=== PATIENT | female | born 1955 | race Caucasian/White ===

== ENCOUNTER → 2017-04-14 | Outpatient (CLI) | payer OTHER ==
[2017-04-19 12:44] LABS: Large VLDL Particle Number,NMR <1.5 nmol/L (<=2.7)
== END | disposition home or self-care (01) ==
LOC: LABWHC1 07:20
PROVIDERS: ATTEND Internal Medicine Cardiovascular Disease
DX: E78.5 Hyperlipidemia, unspecified (principal)
CPT/HCPCS: 36415; 83704

== ENCOUNTER 2018-04-07 11:08 | Emergency (ER) | payer OTHER ==
[2018-04-07 11:16] VITALS: TEMP 98.1
--- NOTE | 2018-04-07 11:32 | ED ---
General Adult HPI - General Chief complaint: Back Pain/Injury Stated complaint: BACK PAIN, SHOOTING TO LEFT CHEST Time Seen by Provider: 04/07/18 11:19 Source: patient Mode of arrival: ambulatory Limitations: no limitations - History of Present Illness Initial comments: Patient is a 63-year-old female with a history of hypertension, high cholesterol , chronic back pain who presents with a chief complaint of back pain and chest pain. Patient states that this is been going on for about 4 days. She describes the chest pain as sharp and like an electric shock. She denies any aggravating or alleviating factors. She states that she was playing with her cat yesterday and things that this may have educated her symptoms. She states that she had a recent stress test about 3 months ago. - Related Data Home Medications Medication Instructions Recorded Confirmed Albuterol Inhaler [Ventolin Hfa 2 puff INHALATION BID 02/02/14 02/17/15 Inhaler] Aspirin 81 mg PO DAILY 02/02/14 02/17/15 Diltiazem HCl [Diltiazem ER (BID)] 180 mg PO DAILY 02/02/14 02/17/15 Lovastatin [Mevacor] 20 mg PO HS 02/02/14 02/17/15 Nitroglycerin Sl Tabs [Nitrostat] 0.4 mg SUBLINGUAL Q5M PRN 02/02/14 02/17/15 Ranitidine HCl 150 mg PO BID 02/02/14 02/17/15 traMADol HCl [Ultram] 50 mg PO Q4H PRN 02/02/14 02/17/15 Previous Rx's Medication Instructions Recorded Albuterol Inhaler [Ventolin Hfa 1 - 2 puff INHALATION Q4-6H PRN #1 09/01/14 Inhaler] inhaler predniSONE 50 mg PO DAILY #5 tab 02/17/15 Cyclobenzaprine [Flexeril] 10 mg PO TID #21 tab 04/07/18 Allergies Allergy/AdvReac Type Severity Reaction Status Date / Time adhesive Allergy Unknown Verified 04/07/18 11:14 aspirin Allergy Rapid Verified 04/07/18 11:14 Heart Rate hydrocortisone Allergy Unknown Verified 04/07/18 11:14 [From Cortizone-10] ibuprofen [From Motrin] Allergy Unknown Verified 04/07/18 11:14 Sulfa (Sulfonamide Allergy Unknown Verified 04/07/18 11:14 Antibiotics) Review of Systems ROS Statement: Those systems with pertinent positive or pertinent negative responses have been documented in the HPI. ROS Other: All systems not noted in ROS Statement are negative. Cardiovascular: Reports: chest pain Musculoskeletal: Reports: back pain, arthralgia Past Medical History Past Medical History: Asthma, COPD, Hyperlipidemia, Hypertension Additional Past Medical History / Comment(s): heart murmur, History of Any Multi-Drug Resistant Organisms: None Reported Past Surgical History: Cholecystectomy, Hysterectomy Additional Past Surgical History / Comment(s): throat polyps, right breast biopsy Past Psychological History: Depression Smoking Status: Current every day smoker Past Alcohol Use History: None Reported Past Drug Use History: None Reported General Exam Limitations: no limitations General appearance: alert, in no apparent distress Head exam: Present: atraumatic, normocephalic Eye exam: Present: normal appearance ENT exam: Present: normal exam Neck exam: Present: normal inspection Respiratory exam: Present: normal lung sounds bilaterally. Absent: respiratory distress, wheezes Cardiovascular Exam: Present: regular rate, normal rhythm GI/Abdominal exam: Present: soft, tenderness (patient has diffuse mild tenderness to palpation ). Absent: distended Rectal exam: Present: deferred Extremities exam: Present: normal inspection, other (Pulses are 2+ bilaterally in the upper and lower extremities). Absent: pedal edema Back exam: Present: normal inspection. Absent: CVA tenderness (R), CVA tenderness (L) Neurological exam: Present: alert, oriented X3, CN II-XII intact, normal gait Psychiatric exam: Present: normal affect, normal mood Skin exam: Present: warm, dry, intact Course Vital Signs 04/07/18 04/07/18 04/07/18 11:14 12:16 14:16 Temperature 98.1 F Pulse Rate 69 66 71 Respiratory 18 20 20 Rate Blood Pressure 120/74 110/60 112/61 O2 Sat by Pulse 99 98 99 Oximetry 04/07/18 15:16 Temperature Pulse Rate 65 Respiratory 20 Rate Blood Pressure 114/64 O2 Sat by Pulse 98 Oximetry Medical Decision Making - Medical Decision Making Patient presents with a chief complaint of back pain and chest pain. On initial evaluation, vital signs are stable, patient is no acute distress. She denies anginal equivalents and has an atypical story however given her history of hypertension and high cholesterol, there is concern for aortic pathology. Patient to be evaluated with basic labs including cardiac evaluation and CT angiogram of the chest abdomen and pelvis to evaluate the aorta. EKG performed at 12:08 shows NSR with a rate of 66 bpm. EKG otherwise unremarakble. 4:26PM Lab evaluation of this patient is unremarkable including 2 sets of troponins at [address] scan shows no aortic pathology. results discussed with the patient, at this time she is stable for discharge and follow up with PCP in 1-2 days, return to the ED if sx worsen or change. patient instructed to use tylenol for pain and she will be give a prescription for flexeril. she was instructed on the use and dosages of all prescribed meds. - Lab Data Result diagrams: 04/07/18 12:00 04/07/18 12:00 Lab Results 04/07/18 04/07/18 04/07/18 Range/Units 12:00 12:00 12:00 WBC 6.3 (3.8-10.6) k/uL RBC 4.49 (3.80-5.40) m/uL Hgb 14.7 (11.4-16.0) gm/dL Hct 44.5 (34.0-46.0) % MCV 99.0 (80.0-100.0) fL MCH 32.7 (25.0-35.0) pg MCHC 33.0 (31.0-37.0) g/dL RDW 13.3 (11.5-15.5) % Plt Count 258 (150-450) k/uL Neutrophils % 57 % Lymphocytes % 33 % Monocytes % 7 % Eosinophils % 1 % Basophils % 0 % Neutrophils # 3.6 (1.3-7.7) k/uL Lymphocytes # 2.1 (1.0-4.8) k/uL Monocytes # 0.5 (0-1.0) k/uL Eosinophils # 0.1 (0-0.7) k/uL Basophils # 0.0 (0-0.2) k/uL Sodium 142 (137-145) mmol/L Potassium 4.7 (3.5-5.1) mmol/L Chloride 107 (98-107) mmol/L Carbon Dioxide 27 (22-30) mmol/L Anion Gap 8 mmol/L BUN 19 H (7-17) mg/dL Creatinine 0.83 (0.52-1.04) mg/dL Est GFR (CKD-EPI)AfAm 88 (>60 ml/min/1.73 sqM) Est GFR (CKD-EPI)NonAf 76 (>60 ml/min/1.73 sqM) Glucose 82 (74-99) mg/dL Calcium 9.6 (8.4-10.2) mg/dL Magnesium 2.2 (1.6-2.3) mg/dL Troponin I (0.000-0.034) ng/mL NT-Pro-B Natriuret Pep pg/mL Urine Color Urine Appearance (Clear) Urine pH (5.0-8.0) Ur Specific [place] (1.001-1.035) Urine Protein (Negative) Urine Glucose (UA) (Negative) Urine Ketones (Negative) Urine Blood (Negative) Urine Nitrite (Negative) Urine Bilirubin (Negative) Urine Urobilinogen (<2.0) mg/dL Ur Leukocyte Esterase (Negative) Blood Type O Positive Blood Type Confirm Blood Type Recheck CABO Indicated Antibody Screen NEGATIVE Spec Expiration Date 04/10/2018229904/07/18 04/07/18 04/07/18 Range/Units 12:00 12:00 12:48 WBC (3.8-10.6) k/uL RBC (3.80-5.40) m/uL Hgb (11.4-16.0) gm/dL Hct (34.0-46.0) % MCV (80.0-100.0) fL MCH (25.0-35.0) pg MCHC (31.0-37.0) g/dL RDW (11.5-15.5) % Plt Count (150-450) k/uL Neutrophils % % Lymphocytes % % Monocytes % % Eosinophils % % Basophils % % Neutrophils # (1.3-7.7) k/uL Lymphocytes # (1.0-4.8) k/uL Monocytes # (0-1.0) k/uL Eosinophils # (0-0.7) k/uL Basophils # (0-0.2) k/uL Sodium (137-145) mmol/L Potassium (3.5-5.1) mmol/L Chloride (98-107) mmol/L Carbon Dioxide (22-30) mmol/L Anion Gap mmol/L BUN (7-17) mg/dL Creatinine (0.52-1.04) mg/dL Est GFR (CKD-EPI)AfAm (>60 ml/min/1.73 sqM) Est GFR (CKD-EPI)NonAf (>60 ml/min/1.73 sqM) Glucose (74-99) mg/dL Calcium (8.4-10.2) mg/dL Magnesium (1.6-2.3) mg/dL Troponin I <0.012 (0.000-0.034) ng/mL NT-Pro-B Natriuret Pep 41 pg/mL Urine Color Light Yellow Urine Appearance Clear (Clear) Urine pH 6.5 (5.0-8.0) Ur Specific [place] 1.011 (1.001-1.035) Urine Protein Negative (Negative) Urine Glucose (UA) Negative (Negative) Urine Ketones Negative (Negative) Urine Blood Negative (Negative) Urine Nitrite Negative (Negative) Urine Bilirubin Negative (Negative) Urine Urobilinogen <2.0 (<2.0) mg/dL Ur Leukocyte Esterase Negative (Negative) Blood Type Blood Type Confirm Blood Type Recheck Antibody Screen Spec Expiration Date 04/07/18 04/07/18 Range/Units 13:34 15:28 WBC (3.8-10.6) k/uL RBC (3.80-5.40) m/uL Hgb (11.4-16.0) gm/dL Hct (34.0-46.0) % MCV (80.0-100.0) fL MCH (25.0-35.0) pg MCHC (31.0-37.0) g/dL RDW (11.5-15.5) % Plt Count (150-450) k/uL Neutrophils % % Lymphocytes % % Monocytes % % Eosinophils % % Basophils % % Neutrophils # (1.3-7.7) k/uL Lymphocytes # (1.0-4.8) k/uL Monocytes # (0-1.0) k/uL Eosinophils # (0-0.7) k/uL Basophils # (0-0.2) k/uL Sodium (137-145) mmol/L Potassium (3.5-5.1) mmol/L Chloride (98-107) mmol/L Carbon Dioxide (22-30) mmol/L Anion Gap mmol/L BUN (7-17) mg/dL Creatinine (0.52-1.04) mg/dL Est GFR (CKD-EPI)AfAm (>60 ml/min/1.73 sqM) Est GFR (CKD-EPI)NonAf (>60 ml/min/1.73 sqM) Glucose (74-99) mg/dL Calcium (8.4-10.2) mg/dL Magnesium (1.6-2.3) mg/dL Troponin I <0.012 (0.000-0.034) ng/mL NT-Pro-B Natriuret Pep pg/mL Urine Color Urine Appearance (Clear) Urine pH (5.0-8.0) Ur Specific [place] (1.001-1.035) Urine Protein (Negative) Urine Glucose (UA) (Negative) Urine Ketones (Negative) Urine Blood (Negative) Urine Nitrite (Negative) Urine Bilirubin (Negative) Urine Urobilinogen (<2.0) mg/dL Ur Leukocyte Esterase (Negative) Blood Type Blood Type Confirm O Positive Blood Type Recheck Antibody Screen Spec Expiration Date Disposition Clinical Impression: Mechanical back pain, Chest pain in adult, Chest pain Disposition: HOME SELF-CARE Condition: Good Is patient prescribed a controlled substance at d/c from ED?: No Referrals: Leila Kimble MD [Primary Care Provider] - 1-2 days
--- NOTE | 2018-04-07 12:52 | XR ---
EXAMINATION TYPE: XR chest 2V DATE OF EXAM: 04/07/2018 HISTORY: Pain. REFERENCE: Previous study dated 08/21/2015. FINDINGS: The lungs are clear. Pleural spaces are clear. The heart is not enlarged. IMPRESSION: NORMAL CHEST.
[2018-04-07 12:56] LABS: Basophils % (A) 0 %; Eosinophils # (A) 0.1 k/uL (0-0.7); Eosinophils % (A) 1 %; HCT 44.5 % (34.0-46.0); HGB 14.7 gm/dL (11.4-16.0); Lymphocytes # (A) 2.1 k/uL (1.0-4.8); Lymphocytes % (A) 33 %; MCH 32.7 pg (25.0-35.0); Mean Platelet Volume 7.3; Monocytes # (A) 0.5 k/uL (0-1.0); Monocytes % (A) 7 %; Neutrophils # (A) 3.6 k/uL (1.3-7.7); Neutrophils % (A) 57 %; Platelet Count 258 k/uL (150-450); RBC 4.49 m/uL (3.80-5.40); RDW 13.3 % (11.5-15.5); WBC 6.3 k/uL (3.8-10.6)
[2018-04-07 13:03] LABS: Calcium 9.6 mg/dL (8.4-10.2); Magnesium 2.2 mg/dL (1.6-2.3); Potassium 4.7 mmol/L (3.5-5.1)
--- NOTE | 2018-04-07 13:05 | CT ---
EXAMINATION TYPE: CT angio thor/abd pel aorta DATE OF EXAM: 04/07/2018 COMPARISON: None. HISTORY: Back pain radiating to chest. CT DLP: 716 mGycm. Automated Exposure Control for Dose Reduction was Utilized. CONTRAST: CT scan of the thorax, abdomen and pelvis is performed with IV Contrast, patient injected with 100 mL of Isovue 370. FINDINGS: The lungs are clear. There is no significant axillary, internal mammary, mediastinal or hil ar adenopathy. There is no pleural or pericardial fluid. The heart is not enlarged. There is no evidence of pulmonary embolus. The aorta is normal in caliber without evidence of dissection. The iliac and proximal femoral vessels are normal. The celiac, SMA and ADITI vessels are patent. Both renal arteries are patent. Within the abdomen, the gallbladder is been removed. Liver and spleen are unremarkable. Both adrenal glands are normal. Both kidneys demonstrate function and appear morphologically normal. The pancreas is unremarkable. There is no significant retroperitoneal, iliac or inguinal adenopathy. The bladder is unremarkable. T he uterus and ovaries are not visualized. There are scattered diverticula in the sigmoid colon and throughout the left side of the colon. There is no radiographic evidence of diverticulitis. The appendix is not visualized. Small bowel loops are within normal caliber. There is no free fluid and no free air identified. There is hypertrophic spondylosis within the spine as well as facet arthropathy. No bony destructive lesion is seen. IMPRESSION: 1. NORMAL CALIBER AORTA WITH NORMAL BRANCHING VESSELS. 2. NO EVIDENCE OF PULMONARY EMBOLUS. 3. NO ACUTE INFLAMMATORY ABNORMALITY. 4. MILD, UNCOMPLICATED DIVERTICULOSIS OF THE LEFT SIDE OF THE COLON. 5. DEGENERATIVE CHANGES WITHIN THE SPINE.
[2018-04-07 13:12] LABS: Appearance,Urine Clear (Clear); Bilirubin,Urine Negative (Negative); Blood,Urine Negative (Negative); Color,Urine Light Yellow; Glucose,Urine (UA) Negative (Negative); Ketones,Urine Negative (Negative); Leukocyte Esterase,Urine Negative (Negative); Nitrite,Urine Negative (Negative); PH, Urine 6.5 (5.0-8.0); Protein,Urine Negative (Negative); Specific Gravity,Urine 1.011 (1.001-1.035); Urobilinogen,Urine <2.0 mg/dL (<2.0)
[2018-04-07 16:39] VITALS: BP 134/72; PULSE 64; RESP 18
== END 2018-04-07 16:38 | disposition home or self-care (01) ==
LOC: EC 11:08
DX: R07.9 Chest pain, unspecified (principal); M54.9 Dorsalgia, unspecified; I10 Essential (primary) hypertension; E78.00 Pure hypercholesterolemia, unspecified; E78.5 Hyperlipidemia, unspecified; J44.9 Chronic obstructive pulmonary disease, unspecified; F17.200 Nicotine dependence, unspecified, uncomplicated; Z79.82 Long term (current) use of aspirin; Z79.899 Other long term (current) drug therapy; Z88.6 Allergy status to analgesic agent; Z91.048 Other nonmedicinal substance allergy status; Z88.2 Allergy status to sulfonamides; Z88.8 Allergy status to other drugs, medicaments and biological substances
CPT/HCPCS: 36415; 93005; 86900; 86901; 83880; 80048; 83735; 84484; 85025; 86850; 81003; 71046; 71275; 74174; 99285; Q9967

== ENCOUNTER 2018-12-20 10:27 | Emergency (ER) | payer OTHER ==
[2018-12-20 10:37] VITALS: RESP 18
[2018-12-20 11:42] LABS: Basophils % (A) 0 %; Eosinophils # (A) 0.1 k/uL (0-0.7); Eosinophils % (A) 2 %; HCT 41.2 % (34.0-46.0); HGB 13.8 gm/dL (11.4-16.0); Lymphocytes # (A) 2.1 k/uL (1.0-4.8); Lymphocytes % (A) 34 %; MCH 33.3 pg (25.0-35.0); MCHC 33.4 g/dL (31.0-37.0); MCV 99.9 fL (80.0-100.0); Mean Platelet Volume 7.5; Monocytes # (A) 0.4 k/uL (0-1.0); Monocytes % (A) 7 %; Neutrophils # (A) 3.3 k/uL (1.3-7.7); Neutrophils % (A) 55 %; Platelet Count 287 k/uL (150-450); RBC 4.13 m/uL (3.80-5.40); WBC 6.1 k/uL (3.8-10.6)
[2018-12-20 11:50] LABS: African American GFR (CKD) >90 (>60 ml/min/1.73 sqM); Anion Gap 8 mmol/L; Blood Urea Nitrogen 16 mg/dL (7-17); Calcium 9.1 mg/dL (8.4-10.2); Carbon Dioxide 23 mmol/L (22-30); Chloride 110 mmol/L (98-107); Glucose 113 mg/dL (74-99); Sodium 141 mmol/L (137-145); Total Bilirubin 0.6 mg/dL (0.2-1.3); Total Protein 6.6 g/dL (6.3-8.2)
[2018-12-20 11:51] LABS: INR 0.8 (<1.2); Partial Thromboplastin Time 26.8 sec (22.0-30.0); Prothrombin Time 9.4 sec (9.0-12.0)
[2018-12-20 11:53] LABS: ALT 16 U/L (9-52); AST 25 U/L (14-36); Alkaline Phosphatase 62 U/L (38-126); Magnesium 2.2 mg/dL (1.6-2.3); Potassium 4.6 mmol/L (3.5-5.1)
--- NOTE | 2018-12-20 12:28 | ED ---
General Adult HPI - General Chief complaint: Arrhythmia/Palpitations Stated complaint: Hypertensive, Heart fluttering Time Seen by Provider: 12/20/18 10:49 Source: patient Mode of arrival: ambulatory Limitations: no limitations - History of Present Illness Initial comments: Dictation was produced using [employer] dictation software. please excuse any grammatical, word or spelling errors. Chief Complaint: 63-year-old female with past medical history of asthma, COPD, dyslipidemia hypertension presents with palpitations. History of Present Illness: 61-year-old female presents with episode of palpitations today. Patient reports having history of palpitations. She states that during that episode she had symptoms that radiate down the left arm patient denies any chest pain or shortness of breath. States the symptoms lasted only episodically for several seconds. States that her palpitations are usually alleviated with aspirin and half a bottle of water. Patient states that recently she was placed on a Holter monitor for 2 weeks. She was told that her Holter monitor was negative for any acute processes. Patient otherwise feels a symptomatic at this time. She denies any nausea vomiting. Patient states she's been eating a well-balanced diet. The ROS documented in this emergency department record has been reviewed and confirmed by me. Those systems with pertinent positive or negative responses have been documented in the HPI. All other systems are other negative and/or noncontributory. PHYSICAL EXAM: General Impression: Alert and oriented x3, not in acute distress HEENT: Normocephalic atraumatic, extra-ocular movements intact, pupils equal and reactive to light bilaterally, mucous membranes moist. Cardiovascular: Heart regular rate and rhythm, S1&S2 audible, no murmurs, rubs or gallops Chest: Lungs clear to auscultation bilaterally, no rhonchi, no wheeze, no rales Abdomen: Bowel sounds present, abdomen soft, non-tender, non-distended, no organomegaly Musculoskeletal: Pulses present and equal in all extremities, no peripheral edema Motor: no focal deficits noted Neurological: CN II-XII grossly intact, no focal motor or sensory deficits noted Skin: Intact with no visualized rashes Psych: Normal affect and mood ED course: 63-year-old female presents with episode of palpitations. All signs upon arrival are within acceptable limits.Laboratory evaluation obtained. CBC, coag panel, metabolic panel, electrolytes are unremarkable. Patient was observed in emergency department on desk monitor with no abnormalities seen. Two-view chest x-ray is nonacute. EKG is unremarkable. It's unclear what is causing patient's palpitations or even if she is having palpitations. Medications were reviewed. Patient is told to avoid any stress, caffeine or stimulants. Still to follow-up with cardiology for repeat Holter monitor testing. Patient is understandable and agreeable to disposition. Return parameters discussed. EKG interpretation: Ventricular rate 75, normal sinus rhythm, [place] interval 172, QRS 84, QTc 4:30. No [place] prolongation, no QTC prolongation, no ST or T-wave changes noted. Overall, this EKG is unremarkable - Related Data Home Medications Medication Instructions Recorded Confirmed Aspirin 81 mg PO DAILY PRN 02/02/14 12/20/18 Lovastatin [Mevacor] 20 mg PO HS 02/02/14 12/20/18 Nitroglycerin Sl Tabs [Nitrostat] 0.4 mg SUBLINGUAL Q5M PRN 02/02/14 12/20/18 Ranitidine HCl 150 mg PO BID 02/02/14 12/20/18 Diltiazem HCl [Diltiazem ER] 180 mg PO DAILY 12/20/18 12/20/18 Allergies Allergy/AdvReac Type Severity Reaction Status Date / Time adhesive Allergy Unknown Verified 12/20/18 11:13 aspirin Allergy Rapid Verified 12/20/18 11:13 Heart Rate hydrocortisone Allergy Unknown Verified 12/20/18 11:13 [From Cortizone-10] ibuprofen [From Motrin] Allergy Unknown Verified 12/20/18 11:13 Sulfa (Sulfonamide Allergy Unknown Verified 12/20/18 11:13 Antibiotics) Review of Systems ROS Statement: Those systems with pertinent positive or pertinent negative responses have been documented in the HPI. ROS Other: All systems not noted in ROS Statement are negative. Past Medical History Past Medical History: Asthma, COPD, Hyperlipidemia, Hypertension Additional Past Medical History / Comment(s): heart murmur, History of Any Multi-Drug Resistant Organisms: None Reported Past Surgical History: Cholecystectomy, Hysterectomy Additional Past Surgical History / Comment(s): throat polyps, right breast biopsy Past Psychological History: Depression Smoking Status: Current every day smoker Past Alcohol Use History: None Reported Past Drug Use History: None Reported General Exam Limitations: no limitations Course Vital Signs 12/20/18 12/20/18 12/20/18 10:34 10:49 11:00 Temperature 98.4 F Pulse Rate 72 74 71 Respiratory 18 15 17 Rate Blood Pressure 112/63 117/76 O2 Sat by Pulse 100 99 100 Oximetry 12/20/18 12/20/18 12/20/18 11:30 12:00 12:30 Temperature Pulse Rate 73 68 63 Respiratory 21 18 15 Rate Blood Pressure 116/73 115/96 116/68 O2 Sat by Pulse 99 98 98 Oximetry 12/20/18 12/20/18 13:00 13:18 Temperature Pulse Rate 62 65 Respiratory 18 18 Rate Blood Pressure 127/74 112/56 O2 Sat by Pulse 98 99 Oximetry Medical Decision Making - Lab Data Result diagrams: 12/20/18 11:08 12/20/18 11:08 Lab Results 12/20/18 12/20/18 12/20/18 Range/Units 11:08 11:08 11:08 WBC 6.1 (3.8-10.6) k/uL RBC 4.13 (3.80-5.40) m/uL Hgb 13.8 (11.4-16.0) gm/dL Hct 41.2 (34.0-46.0) % MCV 99.9 (80.0-100.0) fL MCH 33.3 (25.0-35.0) pg MCHC 33.4 (31.0-37.0) g/dL RDW 13.0 (11.5-15.5) % Plt Count 287 (150-450) k/uL Neutrophils % 55 % Lymphocytes % 34 % Monocytes % 7 % Eosinophils % 2 % Basophils % 0 % Neutrophils # 3.3 (1.3-7.7) k/uL Lymphocytes # 2.1 (1.0-4.8) k/uL Monocytes # 0.4 (0-1.0) k/uL Eosinophils # 0.1 (0-0.7) k/uL Basophils # 0.0 (0-0.2) k/uL PT (9.0-12.0) sec INR (<1.2) APTT (22.0-30.0) sec Sodium 141 (137-145) mmol/L Potassium 4.6 (3.5-5.1) mmol/L Chloride 110 H (98-107) mmol/L Carbon Dioxide 23 (22-30) mmol/L Anion Gap 8 mmol/L BUN 16 (7-17) mg/dL Creatinine 0.76 (0.52-1.04) mg/dL Est GFR (CKD-EPI)AfAm >90 (>60 ml/min/1.73 sqM) Est GFR (CKD-EPI)NonAf 85 (>60 ml/min/1.73 sqM) Glucose 113 H (74-99) mg/dL Calcium 9.1 (8.4-10.2) mg/dL Magnesium 2.2 (1.6-2.3) mg/dL Total Bilirubin 0.6 (0.2-1.3) mg/dL AST 25 (14-36) U/L ALT 16 (9-52) U/L Alkaline Phosphatase 62 (38-126) U/L Troponin I <0.012 (0.000-0.034) ng/mL Total Protein 6.6 (6.3-8.2) g/dL Albumin 4.0 (3.5-5.0) g/dL 12/20/18 Range/Units 11:08 WBC (3.8-10.6) k/uL RBC (3.80-5.40) m/uL Hgb (11.4-16.0) gm/dL Hct (34.0-46.0) % MCV (80.0-100.0) fL MCH (25.0-35.0) pg MCHC (31.0-37.0) g/dL RDW (11.5-15.5) % Plt Count (150-450) k/uL Neutrophils % % Lymphocytes % % Monocytes % % Eosinophils % % Basophils % % Neutrophils # (1.3-7.7) k/uL Lymphocytes # (1.0-4.8) k/uL Monocytes # (0-1.0) k/uL Eosinophils # (0-0.7) k/uL Basophils # (0-0.2) k/uL PT 9.4 (9.0-12.0) sec INR 0.8 (<1.2) APTT 26.8 (22.0-30.0) sec Sodium (137-145) mmol/L Potassium (3.5-5.1) mmol/L Chloride (98-107) mmol/L Carbon Dioxide (22-30) mmol/L Anion Gap mmol/L BUN (7-17) mg/dL Creatinine (0.52-1.04) mg/dL Est GFR (CKD-EPI)AfAm (>60 ml/min/1.73 sqM) Est GFR (CKD-EPI)NonAf (>60 ml/min/1.73 sqM) Glucose (74-99) mg/dL Calcium (8.4-10.2) mg/dL Magnesium (1.6-2.3) mg/dL Total Bilirubin (0.2-1.3) mg/dL AST (14-36) U/L ALT (9-52) U/L Alkaline Phosphatase (38-126) U/L Troponin I (0.000-0.034) ng/mL Total Protein (6.3-8.2) g/dL Albumin (3.5-5.0) g/dL Disposition Clinical Impression: Palpitations Disposition: HOME SELF-CARE Condition: Good Instructions (If sedation given, give patient instructions): Heart Palpitations (ED) Is patient prescribed a controlled substance at d/c from ED?: No Referrals: Reji Eckert MD [STAFF PHYSICIAN] - 1-2 days Time of Disposition: 14:11
--- NOTE | 2018-12-20 12:45 | XR ---
EXAMINATION TYPE: XR chest 2V DATE OF EXAM: 12/20/2018 COMPARISON: Chest x-ray April 07, 2018 HISTORY: Arrhythmia and chest pain. TECHNIQUE: Frontal and lateral views of the chest are obtained. FINDINGS: There is some chronic parenchymal change bilaterally without suspicious new focal air spac e opacity, pleural effusion, or pneumothorax seen. The cardiac silhouette size remains within normal limits. Overlying EKG leads are present. The osseous structures are intact. Cholecystectomy clips are redemonstrated on lateral view. IMPRESSION: No acute cardiopulmonary process. No significant change from prior.
[2018-12-20 14:26] VITALS: BP 120/73; PULSE 64; TEMP 98
== END 2018-12-20 14:25 | disposition home or self-care (01) ==
LOC: EC 10:27
DX: R00.2 Palpitations (principal); E78.5 Hyperlipidemia, unspecified; I10 Essential (primary) hypertension; F17.200 Nicotine dependence, unspecified, uncomplicated; Z88.2 Allergy status to sulfonamides; Z88.6 Allergy status to analgesic agent; Z88.8 Allergy status to other drugs, medicaments and biological substances; Z91.048 Other nonmedicinal substance allergy status; Z79.899 Other long term (current) drug therapy
CPT/HCPCS: 36415; 71046; 80053; 83735; 84484; 85025; 85610; 85730; 93005; 99285

== ENCOUNTER → 2019-05-07 | Outpatient (CLI) | payer OTHER ==
[2019-05-07 13:36] LABS: Basophils # (A) 0.1 k/uL (0-0.2); Basophils % (A) 2 %; Eosinophils # (A) 0.1 k/uL (0-0.7); Eosinophils % (A) 1 %; HCT 42.9 % (34.0-46.0); HGB 14.9 gm/dL (11.4-16.0); Lymphocytes # (A) 1.8 k/uL (1.0-4.8); Lymphocytes % (A) 26 %; MCH 34.5 pg (25.0-35.0); MCHC 34.6 g/dL (31.0-37.0); MCV 99.6 fL (80.0-100.0); Mean Platelet Volume 6.4; Monocytes # (A) 0.6 k/uL (0-1.0); Monocytes % (A) 8 %; Neutrophils # (A) 4.1 k/uL (1.3-7.7); Neutrophils % (A) 61 %; Platelet Count 296 k/uL (150-450); RBC 4.31 m/uL (3.80-5.40); RDW 13.2 % (11.5-15.5); WBC 6.7 k/uL (3.8-10.6)
== END | disposition home or self-care (01) ==
LOC: LABWHC1 10:55
PROVIDERS: ATTEND Family Medicine
DX: R79.9 Abnormal finding of blood chemistry, unspecified (principal)
CPT/HCPCS: 36415; 85025

== ENCOUNTER 2019-10-26 13:19 | Emergency (ER) | payer OTHER ==
[2019-10-26 13:27] VITALS: TEMP 98.1
[2019-10-26] MEDS ORDERED: SODIUM CHLORIDE 0.9% 500 ML 500 ML IV STA (13:44)
[2019-10-26 14:03] LABS: Basophils % (A) 1 %; Eosinophils # (A) 0.1 k/uL (0-0.7); Eosinophils % (A) 1 %; HGB 14.9 gm/dL (11.4-16.0); Lymphocytes # (A) 2.2 k/uL (1.0-4.8); Lymphocytes % (A) 31 %; MCH 32.6 pg (25.0-35.0); MCHC 33.1 g/dL (31.0-37.0); MCV 98.5 fL (80.0-100.0); Mean Platelet Volume 7.2; Monocytes # (A) 0.5 k/uL (0-1.0); Monocytes % (A) 7 %; Neutrophils # (A) 4.1 k/uL (1.3-7.7); Neutrophils % (A) 58 %; Platelet Count 289 k/uL (150-450); RBC 4.57 m/uL (3.80-5.40); RDW 13.3 % (11.5-15.5); WBC 7.1 k/uL (3.8-10.6)
--- NOTE | 2019-10-26 14:07 | ED ---
Arrhythmia/Palpitations HPI - General Chief Complaint: Arrhythmia/Palpitations Stated Complaint: Palpitations Time Seen by Provider: 10/26/19 13:29 Source: patient Mode of arrival: ambulatory Limitations: no limitations - History of Present Illness Initial Comments: Patient is a 64-year-old female, with history of asthma, hypertension, presenting to the emergency Department with complaints of palpitations 3 days. Patient states she had a echo last week and ever since she had this test she's been having increase in her palpitations. Patient denies having any chest pains. She sees Dr. Cam is her hammerer tab. She is scheduled for a stress test in 3 days. Patient denies any recent fever, chills, abdominal pain, nausea, vomiting, shortness of breath, cough. She has no other complaints at this time. Upon arrival to the ER, her vitals are stable. - Related Data Home Medications Medication Instructions Recorded Confirmed Aspirin 81 mg PO DAILY PRN 02/02/14 10/26/19 Lovastatin [Mevacor] 20 mg PO HS 02/02/14 10/26/19 Nitroglycerin Sl Tabs [Nitrostat] 0.4 mg SUBLINGUAL Q5M PRN 02/02/14 10/26/19 Ranitidine HCl 150 mg PO BID 02/02/14 10/26/19 Diltiazem HCl [Diltiazem ER] 180 mg PO DAILY 12/20/18 10/26/19 Artificial Tears-Hypromellose 1 drops BOTH EYES BID 10/26/19 10/26/19 [Artificial Tear Drops] Cyclobenzaprine [Flexeril] 2.5 mg PO BID PRN 10/26/19 10/26/19 Allergies Allergy/AdvReac Type Severity Reaction Status Date / Time adhesive Allergy Unknown Verified 10/26/19 14:14 aspirin Allergy Rapid Verified 10/26/19 14:14 Heart Rate hydrocortisone Allergy Unknown Verified 10/26/19 14:14 [From Cortizone-10] ibuprofen [From Motrin] Allergy Unknown Verified 10/26/19 14:14 Sulfa (Sulfonamide Allergy Unknown Verified 10/26/19 14:14 Antibiotics) Review of Systems ROS Statement: Those systems with pertinent positive or pertinent negative responses have been documented in the HPI. ROS Other: All systems not noted in ROS Statement are negative. Past Medical History Past Medical History: Asthma, COPD, Hyperlipidemia, Hypertension Additional Past Medical History / Comment(s): heart murmur, History of Any Multi-Drug Resistant Organisms: None Reported Past Surgical History: Cholecystectomy, Hysterectomy Additional Past Surgical History / Comment(s): throat polyps, right breast biopsy Past Psychological History: Depression Smoking Status: Current every day smoker Past Alcohol Use History: None Reported Past Drug Use History: None Reported General Exam - General Exam Comments Initial Comments: GENERAL: Well-appearing, well-nourished and in no acute distress. HEAD: Atraumatic, normocephalic. EYES: Pupils equal round and reactive to light, extraocular movements intact, sclera anicteric, conjunctiva are normal. ENT: TMs normal, nares patent, oropharynx clear without exudates. Moist mucous membranes. NECK: Normal range of motion, supple without lymphadenopathy or JVD. LUNGS: Breath sounds clear to auscultation bilaterally and equal. No wheezes rales or rhonchi. HEART: Regular rate and rhythm without murmurs, rubs or gallops. ABDOMEN: Soft, nontender, normoactive bowel sounds. No guarding, no rebound. No masses appreciated. : Deferred EXTREMITIES: Normal range of motion, no pitting or edema. No clubbing or cyanosis. NEUROLOGICAL: Normal speech, normal gait. PSYCH: Normal mood, normal affect. SKIN: Warm, Dry, normal turgor, no rashes or lesions noted. Limitations: no limitations Course Vital Signs 10/26/19 10/26/19 10/26/19 13:23 14:36 14:37 Temperature 98.1 F Pulse Rate 73 67 68 Respiratory 18 16 18 Rate Blood Pressure 137/83 122/83 122/83 O2 Sat by Pulse 98 98 99 Oximetry 10/26/19 15:00 Temperature Pulse Rate 70 Respiratory 18 Rate Blood Pressure 120/77 O2 Sat by Pulse 99 Oximetry EKG Findings - EKG Comments: EKG Findings:: Ventricular rate 74, P or notable 164, QTC 419. Normal sinus rhythm. Normal ECG. No signs of acute ischemia. Medical Decision Making - Medical Decision Making Patient 64-year-old female here for her palpitations 3 days. She had a echo last week, unable to see results. Her hammerer tab Dr. Eckert. She is scheduled for a stress test in 3 days. Her vitals are stable. EKG is normal sinus rhythm, no signs of acute ischemia. Her exam is unremarkable. Lab work shows no acute abnormalities, troponin is normal. Patient was given fluids. She will follow up with Dr. Eckert for her scheduled stress test. She is stable for discharge at this time. She is agreeable with this plan of care. Return parameters were discussed with the patient she verbalized understanding. Case discussed with Dr. Wadsworth. - Lab Data Result diagrams: 10/26/19 13:53 10/26/19 13:53 Lab Results 10/26/19 10/26/19 10/26/19 Range/Units 13:53 13:53 13:53 WBC 7.1 (3.8-10.6) k/uL RBC 4.57 (3.80-5.40) m/uL Hgb 14.9 (11.4-16.0) gm/dL Hct 45.0 (34.0-46.0) % MCV 98.5 (80.0-100.0) fL MCH 32.6 (25.0-35.0) pg MCHC 33.1 (31.0-37.0) g/dL RDW 13.3 (11.5-15.5) % Plt Count 289 (150-450) k/uL Neutrophils % 58 % Lymphocytes % 31 % Monocytes % 7 % Eosinophils % 1 % Basophils % 1 % Neutrophils # 4.1 (1.3-7.7) k/uL Lymphocytes # 2.2 (1.0-4.8) k/uL Monocytes # 0.5 (0-1.0) k/uL Eosinophils # 0.1 (0-0.7) k/uL Basophils # 0.0 (0-0.2) k/uL PT 9.4 (9.0-12.0) sec INR 0.9 (<1.2) APTT 25.4 (22.0-30.0) sec Sodium 138 (137-145) mmol/L Potassium 4.4 (3.5-5.1) mmol/L Chloride 108 H (98-107) mmol/L Carbon Dioxide 24 (22-30) mmol/L Anion Gap 6 mmol/L BUN 20 H (7-17) mg/dL Creatinine 0.70 (0.52-1.04) mg/dL Est GFR (CKD-EPI)AfAm >90 (>60 ml/min/1.73 sqM) Est GFR (CKD-EPI)NonAf >90 (>60 ml/min/1.73 sqM) Glucose 91 (74-99) mg/dL Calcium 9.2 (8.4-10.2) mg/dL Total Bilirubin 0.3 (0.2-1.3) mg/dL AST 26 (14-36) U/L ALT 21 (4-34) U/L Alkaline Phosphatase 87 (38-126) U/L Troponin I (0.000-0.034) ng/mL Total Protein 7.2 (6.3-8.2) g/dL Albumin 4.1 (3.5-5.0) g/dL 10/26/19 Range/Units 13:53 WBC (3.8-10.6) k/uL RBC (3.80-5.40) m/uL Hgb (11.4-16.0) gm/dL Hct (34.0-46.0) % MCV (80.0-100.0) fL MCH (25.0-35.0) pg MCHC (31.0-37.0) g/dL RDW (11.5-15.5) % Plt Count (150-450) k/uL Neutrophils % % Lymphocytes % % Monocytes % % Eosinophils % % Basophils % % Neutrophils # (1.3-7.7) k/uL Lymphocytes # (1.0-4.8) k/uL Monocytes # (0-1.0) k/uL Eosinophils # (0-0.7) k/uL Basophils # (0-0.2) k/uL PT (9.0-12.0) sec INR (<1.2) APTT (22.0-30.0) sec Sodium (137-145) mmol/L Potassium (3.5-5.1) mmol/L Chloride (98-107) mmol/L Carbon Dioxide (22-30) mmol/L Anion Gap mmol/L BUN (7-17) mg/dL Creatinine (0.52-1.04) mg/dL Est GFR (CKD-EPI)AfAm (>60 ml/min/1.73 sqM) Est GFR (CKD-EPI)NonAf (>60 ml/min/1.73 sqM) Glucose (74-99) mg/dL Calcium (8.4-10.2) mg/dL Total Bilirubin (0.2-1.3) mg/dL AST (14-36) U/L ALT (4-34) U/L Alkaline Phosphatase (38-126) U/L Troponin I <0.012 (0.000-0.034) ng/mL Total Protein (6.3-8.2) g/dL Albumin (3.5-5.0) g/dL Disposition Clinical Impression: Palpitations Disposition: HOME SELF-CARE Condition: Stable Instructions (If sedation given, give patient instructions): Heart Palpitations (ED) Additional Instructions: Please return to the Emergency Department if symptoms worsen or any other concerns. Follow-up with Dr. Eckert as discussed for scheduled stress test. Is patient prescribed a controlled substance at d/c from ED?: No Referrals: Leila Kimble MD [Primary Care Provider] - 1-2 days
[2019-10-26 14:12] LABS: ALT 21 U/L (4-34); AST 26 U/L (14-36); African American GFR (CKD) >90 (>60 ml/min/1.73 sqM); Albumin 4.1 g/dL (3.5-5.0); Alkaline Phosphatase 87 U/L (38-126); Anion Gap 6 mmol/L; Blood Urea Nitrogen 20 mg/dL (7-17); Calcium 9.2 mg/dL (8.4-10.2); Carbon Dioxide 24 mmol/L (22-30); Chloride 108 mmol/L (98-107); Glucose 91 mg/dL (74-99); Non-African American GFR(CKD) >90 (>60 ml/min/1.73 sqM); Potassium 4.4 mmol/L (3.5-5.1); Sodium 138 mmol/L (137-145); Total Bilirubin 0.3 mg/dL (0.2-1.3); Total Protein 7.2 g/dL (6.3-8.2)
[2019-10-26 14:15] LABS: INR 0.9 (<1.2); Partial Thromboplastin Time 25.4 sec (22.0-30.0); Prothrombin Time 9.4 sec (9.0-12.0)
[2019-10-26 15:04] VITALS: BP 120/77; PULSE 70; RESP 18
== END 2019-10-26 15:21 | disposition home or self-care (01) ==
LOC: EC 13:19
DX: R00.2 Palpitations (principal); I10 Essential (primary) hypertension; E78.5 Hyperlipidemia, unspecified; F17.200 Nicotine dependence, unspecified, uncomplicated; Z79.82 Long term (current) use of aspirin; Z79.899 Other long term (current) drug therapy; Z91.048 Other nonmedicinal substance allergy status; Z88.6 Allergy status to analgesic agent; Z88.8 Allergy status to other drugs, medicaments and biological substances; Z88.2 Allergy status to sulfonamides
CPT/HCPCS: 36415; 80053; 84484; 85025; 85610; 85730; 96360; 99285

== ENCOUNTER 2019-11-21 17:39 | Emergency (ER) | payer OTHER ==
[2019-11-21 18:07] VITALS: TEMP 97.7
--- NOTE | 2019-11-21 18:29 | ED ---
Arrhythmia/Palpitations HPI - General Chief Complaint: Arrhythmia/Palpitations Stated Complaint: Chest pain Time Seen by Provider: 11/21/19 18:16 Source: patient, RN notes reviewed Mode of arrival: wheelchair Limitations: no limitations - History of Present Illness Initial Comments: Is a 64-year-old female who presents with complaints of acid palpitations today between 1:32 PM. She states her every 5 minutes. She states she does have a monitor and is supposed to push about every time she feels as though is having very frequently. No chest pain or shortness of breath no other complaints or modifying factors no new medications no known electrolyte abnormalities. MD Complaint: "skipped beats", palpitations - Related Data Home Medications Medication Instructions Recorded Confirmed Aspirin 81 mg PO DAILY PRN 02/02/14 10/26/19 Lovastatin [Mevacor] 20 mg PO HS 02/02/14 10/26/19 Nitroglycerin Sl Tabs [Nitrostat] 0.4 mg SUBLINGUAL Q5M PRN 02/02/14 10/26/19 Ranitidine HCl 150 mg PO BID 02/02/14 10/26/19 Diltiazem HCl [Diltiazem ER] 180 mg PO DAILY 12/20/18 10/26/19 Artificial Tears-Hypromellose 1 drops BOTH EYES BID 10/26/19 10/26/19 [Artificial Tear Drops] Cyclobenzaprine [Flexeril] 2.5 mg PO BID PRN 10/26/19 10/26/19 Allergies Allergy/AdvReac Type Severity Reaction Status Date / Time adhesive Allergy Unknown Verified 11/21/19 18:07 aspirin Allergy Rapid Verified 11/21/19 18:07 Heart Rate hydrocortisone Allergy Unknown Verified 11/21/19 18:07 [From Cortizone-10] ibuprofen [From Motrin] Allergy Unknown Verified 11/21/19 18:07 Sulfa (Sulfonamide Allergy Unknown Verified 11/21/19 18:07 Antibiotics) Review of Systems ROS Statement: Those systems with pertinent positive or pertinent negative responses have been documented in the HPI. ROS Other: All systems not noted in ROS Statement are negative. Past Medical History Past Medical History: Asthma, COPD, Hyperlipidemia, Hypertension Additional Past Medical History / Comment(s): heart murmur, History of Any Multi-Drug Resistant Organisms: None Reported Past Surgical History: Cholecystectomy, Hysterectomy Additional Past Surgical History / Comment(s): throat polyps, right breast biopsy Past Psychological History: Depression Smoking Status: Current every day smoker Past Alcohol Use History: None Reported Past Drug Use History: None Reported General Exam - General Exam Comments Initial Comments: This is a well-developed well-nourished awake alert oriented 3 female Limitations: no limitations General appearance: alert, anxious Head exam: Present: atraumatic, normocephalic, normal inspection Eye exam: Present: normal appearance, PERRL, EOMI. Absent: scleral icterus, conjunctival injection, periorbital swelling ENT exam: Present: normal exam, mucous membranes moist Neck exam: Present: normal inspection. Absent: tenderness, meningismus, lymphadenopathy Respiratory exam: Present: normal lung sounds bilaterally. Absent: respiratory distress, wheezes, rales, rhonchi, stridor Cardiovascular Exam: Present: regular rate, normal rhythm, normal heart sounds. Absent: systolic murmur, diastolic murmur, rubs, gallop, clicks GI/Abdominal exam: Present: soft, normal bowel sounds. Absent: distended, tenderness, guarding, rebound, rigid Extremities exam: Present: normal inspection, full ROM, normal capillary refill. Absent: tenderness, pedal edema, joint swelling, calf tenderness Back exam: Present: normal inspection Neurological exam: Present: alert, oriented X3, CN II-XII intact Psychiatric exam: Present: normal affect, normal mood Skin exam: Present: warm, dry, intact, normal color. Absent: rash Course Vital Signs 11/21/19 11/21/19 11/21/19 18:04 18:30 20:00 Temperature 97.7 F Pulse Rate 75 66 71 Respiratory 18 14 14 Rate Blood Pressure 106/74 106/76 112/70 O2 Sat by Pulse 97 Oximetry 11/21/19 20:30 Temperature Pulse Rate 64 Respiratory 14 Rate Blood Pressure 110/79 O2 Sat by Pulse Oximetry EKG Findings - EKG Results: EKG: interpreted by JUMANA, sinus rhythm (Sinus rhythm with occasional PACs rate 71 appear interval was 78 QRS duration 78 QT/QTC 394/428) Medical Decision Making - Medical Decision Making Patient's had no further episodes while here and did discuss findings with her her electrolytes and cardiac enzymes are within normal limits this time. She does have follow-up with her doctor she's in the process of having a cardiac workup. She'll be discharged and he will with this. She is in agreement with this. - Lab Data Result diagrams: 11/21/19 19:33 11/21/19 19:33 Lab Results 11/21/19 11/21/19 11/21/19 Range/Units 19:33 19:33 19:33 WBC 8.9 (3.8-10.6) k/uL RBC 4.18 (3.80-5.40) m/uL Hgb 14.1 (11.4-16.0) gm/dL Hct 41.7 (34.0-46.0) % MCV 99.9 (80.0-100.0) fL MCH 33.8 (25.0-35.0) pg MCHC 33.9 (31.0-37.0) g/dL RDW 13.8 (11.5-15.5) % Plt Count 324 (150-450) k/uL Neutrophils % 60 % Lymphocytes % 31 % Monocytes % 7 % Eosinophils % 2 % Basophils % 0 % Neutrophils # 5.3 (1.3-7.7) k/uL Lymphocytes # 2.7 (1.0-4.8) k/uL Monocytes # 0.6 (0-1.0) k/uL Eosinophils # 0.1 (0-0.7) k/uL Basophils # 0.0 (0-0.2) k/uL PT 9.4 (9.0-12.0) sec INR 0.9 (<1.2) APTT 25.8 (22.0-30.0) sec Sodium 139 (137-145) mmol/L Potassium 4.1 (3.5-5.1) mmol/L Chloride 106 (98-107) mmol/L Carbon Dioxide 26 (22-30) mmol/L Anion Gap 7 mmol/L BUN 19 H (7-17) mg/dL Creatinine 0.71 (0.52-1.04) mg/dL Est GFR (CKD-EPI)AfAm >90 (>60 ml/min/1.73 sqM) Est GFR (CKD-EPI)NonAf >90 (>60 ml/min/1.73 sqM) Glucose 92 (74-99) mg/dL Calcium 8.9 (8.4-10.2) mg/dL Magnesium 2.3 (1.6-2.3) mg/dL Total Bilirubin 0.1 L (0.2-1.3) mg/dL AST 24 (14-36) U/L ALT 21 (4-34) U/L Alkaline Phosphatase 96 (38-126) U/L Creatine Kinase 62 (30-135) U/L Troponin I (0.000-0.034) ng/mL Total Protein 6.6 (6.3-8.2) g/dL Albumin 3.9 (3.5-5.0) g/dL 11/21/19 Range/Units 19:33 WBC (3.8-10.6) k/uL RBC (3.80-5.40) m/uL Hgb (11.4-16.0) gm/dL Hct (34.0-46.0) % MCV (80.0-100.0) fL MCH (25.0-35.0) pg MCHC (31.0-37.0) g/dL RDW (11.5-15.5) % Plt Count (150-450) k/uL Neutrophils % % Lymphocytes % % Monocytes % % Eosinophils % % Basophils % % Neutrophils # (1.3-7.7) k/uL Lymphocytes # (1.0-4.8) k/uL Monocytes # (0-1.0) k/uL Eosinophils # (0-0.7) k/uL Basophils # (0-0.2) k/uL PT (9.0-12.0) sec INR (<1.2) APTT (22.0-30.0) sec Sodium (137-145) mmol/L Potassium (3.5-5.1) mmol/L Chloride (98-107) mmol/L Carbon Dioxide (22-30) mmol/L Anion Gap mmol/L BUN (7-17) mg/dL Creatinine (0.52-1.04) mg/dL Est GFR (CKD-EPI)AfAm (>60 ml/min/1.73 sqM) Est GFR (CKD-EPI)NonAf (>60 ml/min/1.73 sqM) Glucose (74-99) mg/dL Calcium (8.4-10.2) mg/dL Magnesium (1.6-2.3) mg/dL Total Bilirubin (0.2-1.3) mg/dL AST (14-36) U/L ALT (4-34) U/L Alkaline Phosphatase (38-126) U/L Creatine Kinase (30-135) U/L Troponin I <0.012 (0.000-0.034) ng/mL Total Protein (6.3-8.2) g/dL Albumin (3.5-5.0) g/dL - Radiology Data Radiology results: report reviewed (I did review the imaging and report no acute findings.), image reviewed Disposition Clinical Impression: Premature atrial contraction, Palpitations Disposition: HOME SELF-CARE Condition: Good Instructions (If sedation given, give patient instructions): Heart Palpitations (ED), Premature Atrial Contractions (ED) Is patient prescribed a controlled substance at d/c from ED?: No Referrals: Leila Kimble MD [Primary Care Provider] - 1-2 days
--- NOTE | 2019-11-21 19:34 | XR ---
EXAMINATION TYPE: XR chest 2V DATE OF EXAM: 11/21/2019 COMPARISON: 12/20/2018 INDICATION: Dysrhythmia heart palpitations history of COPD TECHNIQUE: Frontal and lateral views of the chest are obtained. FINDINGS: The heart size is normal. The pulmonary vasculature is normal. The lungs are clear. Electronic device overlies the midline. IMPRESSION: 1. No acute pulmonary process.
[2019-11-21 19:47] LABS: Basophils % (A) 0 %; Eosinophils # (A) 0.1 k/uL (0-0.7); Eosinophils % (A) 2 %; HCT 41.7 % (34.0-46.0); HGB 14.1 gm/dL (11.4-16.0); Lymphocytes # (A) 2.7 k/uL (1.0-4.8); Lymphocytes % (A) 31 %; MCH 33.8 pg (25.0-35.0); MCHC 33.9 g/dL (31.0-37.0); MCV 99.9 fL (80.0-100.0); Mean Platelet Volume 7.3; Monocytes # (A) 0.6 k/uL (0-1.0); Monocytes % (A) 7 %; Neutrophils # (A) 5.3 k/uL (1.3-7.7); Neutrophils % (A) 60 %; Platelet Count 324 k/uL (150-450); RBC 4.18 m/uL (3.80-5.40); RDW 13.8 % (11.5-15.5); WBC 8.9 k/uL (3.8-10.6)
[2019-11-21 19:57] LABS: ALT 21 U/L (4-34); AST 24 U/L (14-36); African American GFR (CKD) >90 (>60 ml/min/1.73 sqM); Albumin 3.9 g/dL (3.5-5.0); Alkaline Phosphatase 96 U/L (38-126); Anion Gap 7 mmol/L; Blood Urea Nitrogen 19 mg/dL (7-17); Calcium 8.9 mg/dL (8.4-10.2); Carbon Dioxide 26 mmol/L (22-30); Chloride 106 mmol/L (98-107); Creatine Kinase 62 U/L (30-135); Glucose 92 mg/dL (74-99); INR 0.9 (<1.2); Magnesium 2.3 mg/dL (1.6-2.3); Non-African American GFR(CKD) >90 (>60 ml/min/1.73 sqM); Partial Thromboplastin Time 25.8 sec (22.0-30.0); Potassium 4.1 mmol/L (3.5-5.1); Prothrombin Time 9.4 sec (9.0-12.0); Sodium 139 mmol/L (137-145); Total Bilirubin 0.1 mg/dL (0.2-1.3); Total Protein 6.6 g/dL (6.3-8.2)
[2019-11-21 20:47] VITALS: BP 110/79; PULSE 64; RESP 14
== END 2019-11-21 20:55 | disposition home or self-care (01) ==
LOC: EC 17:39
DX: I49.1 Atrial premature depolarization (principal); I10 Essential (primary) hypertension; E78.5 Hyperlipidemia, unspecified; F17.200 Nicotine dependence, unspecified, uncomplicated; Z79.899 Other long term (current) drug therapy; Z88.2 Allergy status to sulfonamides; Z88.6 Allergy status to analgesic agent; Z88.8 Allergy status to other drugs, medicaments and biological substances; Z91.048 Other nonmedicinal substance allergy status
CPT/HCPCS: 36415; 71046; 80053; 82550; 83735; 84484; 85025; 85610; 85730; 93005; 99285

== ENCOUNTER → 2020-06-08 | Outpatient (CLI) | payer OTHER ==
--- NOTE | 2020-06-09 07:51 | CTL ---
EXAMINATION TYPE: CT Low Dose Lung DATE OF EXAM ORDERED: 06/08/2020 HISTORY: Long-term tobacco use. Lung cancer screening CT DLP: 122.[address] CTDI: 3.5 mGy Automated exposure control for dose reduction was used. SCREENING VISIT: Initial study COMPARISON: CTA aorta April 07, 2018. Prior chest x-ray November 21, 2019 TECHNIQUE: Low dose computed tomography scan was performed through the chest at 1 mm thick sections a nd reconstructed images in the coronal plane at [address] DIAGNOSTIC QUALITY: Limited, but interpretable Some motion artifact degradation at the diaphragms noted. FINDINGS: LUNG NODULES: None. LUNGS: COPD: Severity: Mild Fibrosis: Severity: None Lymph nodes: None Other findings: None BILATERAL PLEURAL SPACE: Effusion: None Calcification: None Thickening: None Pneumothorax: None HEART: Heart Size: Normal Coronary calcification: None Pericardial effusion: None OTHER FINDINGS: Upper abdomen: Cholecystectomy clips redemonstrated. Bony thorax: Exaggerated thoracic kyphosis with mild to moderate multilevel anterior spurring and sag ittal images. Supraclavicular region: No suspicious findings. Other: None IMPRESSION: No suspicious nodules CT LUNG RAD AND CT CHEST RECOMMENDATION: Lung-Rad 1 Negative: Continue annual screening with LDCT in 12 months. S Modifier (other clinically significant findings): None
== END | disposition home or self-care (01) ==
LOC: RADCTMAIN 16:48
PROVIDERS: ATTEND Family Medicine
DX: Z12.2 Encounter for screening for malignant neoplasm of respiratory organs (principal); F17.210 Nicotine dependence, cigarettes, uncomplicated

== ENCOUNTER → 2020-07-09 | Outpatient (CLI) | payer OTHER ==
--- NOTE | 2020-07-13 14:13 | MM ---
Reason for exam: screening (asymptomatic). Last mammogram was performed 2 years and 11 months ago. History: Patient has history of endometrial cancer at age 26. Family history of breast cancer in mother at age 40. Benign excisional biopsy of the right breast, 2005. Physical Findings: A clinical breast exam by your physician is recommended on an annual basis and results should be correlated with mammographic findings. MG Screening Mammo w CAD Bilateral CC and MLO view(s) were taken. Prior study comparison: August 10, 2017, bilateral MG screening mammo w CAD. May 15, 2015, bilateral MG 3d diag mammo w/cad SINDHU. There are scattered fibroglandular densities. Previous mammotome biopsy in the right breast. There is chronic nodularity in the right breast. Asymmetric breast tissue right breast, stable. There is no discrete abnormality. ASSESSMENT: Benign, BI-RAD 2 RECOMMENDATION: Routine screening mammogram of both breasts in 1 year.
== END | disposition home or self-care (01) ==
LOC: RADMAMWWP 10:07
PROVIDERS: ATTEND Family Medicine
DX: Z12.31 Encounter for screening mammogram for malignant neoplasm of breast (principal); Z80.3 Family history of malignant neoplasm of breast
CPT/HCPCS: 77067

== ENCOUNTER → 2020-07-22 | Outpatient (CLI) | payer OTHER ==
[2020-07-22 09:19] LABS: HCT 43.2 % (34.0-46.0); HGB 14.3 gm/dL (11.4-16.0); MCH 33.4 pg (25.0-35.0); MCHC 33.1 g/dL (31.0-37.0); Mean Platelet Volume 6.7; Platelet Count 312 k/uL (150-450); RBC 4.27 m/uL (3.80-5.40); RDW 13.4 % (11.5-15.5)
[2020-07-22 09:36] LABS: African American GFR (CKD) >90 (>60 ml/min/1.73 sqM); Anion Gap 4 mmol/L; Blood Urea Nitrogen 16 mg/dL (7-17); Carbon Dioxide 30 mmol/L (22-30); Chloride 107 mmol/L (98-107); Non-African American GFR(CKD) 82 (>60 ml/min/1.73 sqM); Potassium 4.9 mmol/L (3.5-5.1); Sodium 141 mmol/L (137-145)
== END | disposition home or self-care (01) ==
LOC: LABPAT 08:42
PROVIDERS: ATTEND Internal Medicine Interventional Cardiology
DX: Z01.818 Encounter for other preprocedural examination (principal); I34.0 Nonrheumatic mitral (valve) insufficiency
CPT/HCPCS: 36415; 80051; 82565; 84520; 85027

== ENCOUNTER 2020-08-10 06:03 | Day surgery (SDC) | payer OTHER ==
[2020-08-06 09:46] VITALS: BMI 32.3
[~2020-08-10 06:03] MED LIST: ALPRAZolam 0.25 MG TAB PO PRN; ALPRAZolam 0.5 MG TAB PO PRN; ASPIRIN 325 MG TAB PO STA; ATORVASTATIN 80 MG TAB PO STA; HEPARIN SODIUM,PORCINE 10,000 UNIT in SODIUM CHLORIDE 0.9% 1,000 ML IRRIGATION PRN; HEPARIN SODIUM,PORCINE 2,500 UNIT in SODIUM CHLORIDE 0.9% 250 ML IRRIGATION PRN; NITROGLYCERIN SL TABS 0.4 MG TAB SUBLINGUAL PRN; SODIUM CHLORIDE 0.9% 1,000 ML in EMPTY BAG 1 BAG IV ONE
[2020-08-10 07:01] VITALS: RESP 16; TEMP 97.2
[2020-08-10] MEDS ORDERED: VERAPAMIL 2.5 MG/ML 2 ML AMP ONE (07:32)
[2020-08-10] MEDS ORDERED: LIDOCAINE 1% INJ 10MG/ML (20 ML MDV) ONE (07:33)
[2020-08-10] MEDS: MIDAZOLAM 2 MG/2 ML VIAL IV ONE ×2 (07:42→07:45)
[2020-08-10] MEDS ORDERED: fentaNYL (PF) 50 MCG/ML 2 ML AMP IV ONE ×2 (07:42→07:57)
[2020-08-10] MEDS ORDERED: LIDOCAINE 1% INJ 10MG/ML (20 ML MDV) SQ ONE (07:44)
[2020-08-10] MEDS ORDERED: VERAPAMIL SYRINGE (5 MG/10 ML) INTRAARTER ONE (07:45)
[2020-08-10] MEDS ORDERED: HEPARIN SODIUM 1,000 UN/ML (10ML VL) IV ONE (07:47)
[2020-08-10] MEDS ORDERED: HEPARIN SODIUM 1,000 UN/ML (10ML VL) ONE (07:47)
[2020-08-10] MEDS ORDERED: fentaNYL (PF) 50 MCG/ML 2 ML AMP ONE (07:57)
[2020-08-10] MEDS ORDERED: IOPAMIDOL-370 125ML BTL INJ ONE (08:00)
[2020-08-10] MEDS ORDERED: SODIUM CHLORIDE 0.9% 1,000 ML IV SCH (08:00)
--- NOTE | 2020-08-10 10:13 | CC ---
CARDIAC CATHETERIZATION REPORT DATE OF SERVICE: August 10, 2020. PERFORMING PHYSICIAN: Reji Eckert MD. PROCEDURE PERFORMED: 1. Selective right and left coronary angiogram. 2. Left heart catheterization. INDICATION: This is a 65-year-old female patient with hypertension and dyslipidemia and history of smoking, who was experiencing symptoms of chest discomfort. She underwent a stress test and that came into be abnormal with evidence of anterior ischemia and because of that, a heart catheterization was advised. APPROACH: Right radial artery. COMPLICATION: None. LEVEL OF SEDATION: Moderate with sedation length of 20 minutes. PROCEDURE DESCRIPTION: After obtaining an informed consent, the patient was brought to the cardiac labor arbitrator. The right radial artery was cannulated using micropuncture technique and a micropuncture wire passed easily then I placed a 6-Bengali sheath at the right radial artery. Selective right and left coronary angiogram performed with JR4 and JL4 catheters. Left heart catheterization was performed using the JR4 catheter which crossed the aortic valve then I did pullback across the valve. The procedure was completed without any complication. SELECTIVE CORONARY ANGIOGRAM: 1. The RCA is a large caliber vessel. It is a dominant vessel and appeared to be angiographically normal. Distally, it bifurcates into PDA and PLV branches, both appeared to be angiographically normal. 2. The left main is angiographically normal. It trifurcates into left circumflex, ramus intermedius, and left anterior descending artery. 3. The left circumflex is a medium caliber vessel, nondominant vessel and it appeared to be angiographically normal. 4. The ramus intermedius is a medium caliber vessel and appeared to be angiographically normal. 5. The LAD is a large caliber vessel, seems to be angiographically normal. It gives rise into first and second diagonal branches, both appeared to be angiographically normal. HEMODYNAMICS: The LVEDP was 10 to 12 mmHg without significant gradient across the aortic valve. CONCLUSION: 1. Normal coronary angiogram. 2. Normal LVEDP. Postprocedure management is medical treatment. MMODL / IJN: [id number] /
[2020-08-10 13:05] VITALS: BP 115/65; PULSE 88
== END 2020-08-10 12:56 | disposition home or self-care (01) ==
LOC: CATHCVL 06:03
PROVIDERS: ATTEND Internal Medicine Interventional Cardiology
DX: R94.39 Abnormal result of other cardiovascular function study (principal); R07.89 Other chest pain; I20.0 Unstable angina; I10 Essential (primary) hypertension; J44.9 Chronic obstructive pulmonary disease, unspecified; E78.5 Hyperlipidemia, unspecified; I34.0 Nonrheumatic mitral (valve) insufficiency; R00.2 Palpitations; R06.02 Shortness of breath; F17.210 Nicotine dependence, cigarettes, uncomplicated; I48.91 Unspecified atrial fibrillation; E78.2 Mixed hyperlipidemia; Z79.82 Long term (current) use of aspirin; Z79.899 Other long term (current) drug therapy; Z88.6 Allergy status to analgesic agent; Z88.2 Allergy status to sulfonamides; Z82.49 Family history of ischemic heart disease and other diseases of the circulatory system
CPT/HCPCS: 93458; C1769 ×2; C1894; J2250; J2001; J3010; J1644; Q9967

== ENCOUNTER 2021-05-22 13:24 | Emergency (ER) | payer MEDICARE, OTHER ==
--- NOTE | 2021-05-22 15:24 | ED ---
General Adult HPI - General Chief complaint: Extremity Problem,Nontraumatic Stated complaint: Covid+ L hand numbness Time Seen by Provider: 05/22/21 15:04 Source: patient, RN notes reviewed, old records reviewed Mode of arrival: ambulatory Limitations: no limitations - History of Present Illness Initial comments: This is a well-appearing 66-year-old female that presents to the emergency room with complaints of left lower arm numbness. Patient states that sometimes it goes up to her upper arm. She states that she also lost her sense of taste and smell on Monday was seen by her primary care doctor and had a Covid test but did not get the results back yet. She states that the numbness in the arm is completely resolved at this time. She states that this has not happened to her in the past. She states that she does have a pinched nerve in her upper back -: days(s) (5) Location: back, left, upper extremity Radiation: proximal Severity scale (1-10): 0 Consistency: now resolved Associated Symptoms: other (body aches lost of taste and smell) Treatments Prior to Arrival: none - Related Data Home Medications Medication Instructions Recorded Confirmed Aspirin 81 mg PO DAILY PRN 02/02/14 08/10/20 Lovastatin [Mevacor] 20 mg PO HS 02/02/14 08/10/20 Nitroglycerin Sl Tabs [Nitrostat] 0.4 mg SUBLINGUAL Q5M PRN 02/02/14 08/06/20 Diltiazem HCl [Diltiazem ER] 180 mg PO DAILY 12/20/18 08/10/20 Artificial Tears-Hypromellose 1 drops BOTH EYES BID 10/26/19 08/10/20 [Artificial Tear Drops] Cyclobenzaprine [Flexeril] 2.5 mg PO BID PRN 10/26/19 08/10/20 Albuterol Inhaler [Ventolin Hfa 2 puff INHALATION BID 08/06/20 08/10/20 Inhaler] Famotidine [Pepcid] 20 mg PO DAILY 08/06/20 08/10/20 Allergies Allergy/AdvReac Type Severity Reaction Status Date / Time adhesive Allergy Unknown Verified 05/22/21 14:23 ibuprofen [From Motrin] Allergy Unknown Verified 05/22/21 14:23 Sulfa (Sulfonamide Allergy Unknown Verified 05/22/21 14:23 Antibiotics) Review of Systems ROS Statement: Those systems with pertinent positive or pertinent negative responses have been documented in the HPI. ROS Other: All systems not noted in ROS Statement are negative. Past Medical History Past Medical History: Asthma, COPD, Hyperlipidemia, Hypertension Additional Past Medical History / Comment(s): heart murmur, History of Any Multi-Drug Resistant Organisms: None Reported Past Surgical History: Cholecystectomy, Hysterectomy Additional Past Surgical History / Comment(s): throat polyps, right breast biopsy Past Psychological History: Depression Smoking Status: Current every day smoker Past Alcohol Use History: None Reported Past Drug Use History: None Reported General Exam Limitations: no limitations General appearance: alert, in no apparent distress Head exam: Present: atraumatic, normocephalic, normal inspection Eye exam: Present: normal appearance, EOMI ENT exam: Present: normal exam, normal oropharynx, mucous membranes moist Neck exam: Present: normal inspection, full ROM. Absent: tenderness, meningismus, lymphadenopathy, thyromegaly Respiratory exam: Present: normal lung sounds bilaterally. Absent: respiratory distress, wheezes, rales, rhonchi, stridor Cardiovascular Exam: Present: regular rate, normal rhythm, normal heart sounds. Absent: systolic murmur, diastolic murmur, rubs, gallop, clicks Extremities exam: Present: normal inspection, full ROM, normal capillary refill. Absent: tenderness, pedal edema, joint swelling, calf tenderness Back exam: Present: tenderness (Mid thoracic), paraspinal tenderness, vertebral tenderness. Absent: CVA tenderness (R), CVA tenderness (L) Expanded Back exam: Absent: saddle anesthesia Back exam: Negative Straight Leg Raising: Left, Right Neurological exam: Present: alert, oriented X3, CN II-XII intact, normal gait Psychiatric exam: Present: normal affect, normal mood. Absent: anxious Skin exam: Present: warm, dry, intact, normal color. Absent: rash Course Vital Signs 05/22/21 05/22/21 14:20 16:52 Temperature 98.0 F 98.1 F Pulse Rate 76 75 Respiratory 19 18 Rate Blood Pressure 117/73 114/84 O2 Sat by Pulse 98 100 Oximetry Medical Decision Making - Medical Decision Making Patient no longer has the numbness and tingling in the left arm. This is likely a radiculopathy. X-ray cervical spine shows no fracture subluxation. There is a mild facet arthropathy on the left with no significant degenerative disc disease. X-ray of the thoracic spine shows no significant abnormalities fractures or subluxations. Patient is covid positive was offered monoclonal antibodies and opted not to get them. She is concerned for side effects. I did discuss the risk versus benefits with the patient and she declined. I advised her that she can return to the emergency room for monoclonal antibodies if she changes her mind within 10 days of symptom onset. She'll be discharged home to follow up with her primary care doctor. Return to the emergency room with any new or worsening symptoms. Will be directed to stop quarantine for 10 days since onset in 24 hours without a fever. Case discussed with Dr. Onofre - Lab Data Lab Results 05/22/21 Range/Units 15:24 Coronavirus (PCR) Detected A (Not Detectd) Disposition Clinical Impression: COVID-19, Radicular pain in left arm Disposition: HOME SELF-CARE Condition: Good Instructions (If sedation given, give patient instructions): Coronavirus Disease 2019 (COVID-19), Paresthesia (ED) Additional Instructions: Your covid test is positive today. Self quarantine 10 days from symptom onset and 24 hours without fever. Return to the emergency room if you change your mind for monoclonal antibody infusion within 10 days of a symptom onset. Return to the emergency room if the numbness and tingling in your left arm worsens or if you develop any new or concerning symptoms including headache or weakness on one side or body. Follow-up with your doctor next week. You can take Tylenol as needed for body aches or fevers. Is patient prescribed a controlled substance at d/c from ED?: No Referrals: Leila Kimble MD [Primary Care Provider] - 1-2 days Time of Disposition: 16:41
--- NOTE | 2021-05-22 16:20 | XR ---
Cervical spine. HISTORY: Numbness. COMPARISON: None. TECHNIQUE: 5 views of cervical spine the craniovertebral junction relationships and prevertebral soft tissues are normal. The cervical vertebral segments are normal in height and alignment and there is no fracture or sublux ation. The disc spaces are well-maintained. There is mild facet arthropathy particularly on the left but the neuroforamina are patent bilaterally. IMPRESSION: 1. No fracture or subluxation. 2. Mild facet arthropathy in the mid lower cervical spine on the left. 3. No significant degenerative disc disease and no bony neural foraminal encroachment
--- NOTE | 2021-05-22 16:21 | XR ---
Thoracic spine HISTORY: Numbness Comparison: None. TECHNIQUE: 3 views of thoracic spine were obtained. FINDINGS: The thoracic vertebral segments are normal in height and alignment and there is no fracture or sublux ation. The disc spaces are well-maintained. The paraspinal soft tissues are unremarkable. IMPRESSION: No significant abnormality seen.
[2021-05-22 16:53] VITALS: BP 114/84; PULSE 75; RESP 18; TEMP 98.1
== END 2021-05-22 16:52 | disposition home or self-care (01) ==
LOC: EC 13:24
DX: U07.1 COVID-19 (principal); M54.14 Radiculopathy, thoracic region; I10 Essential (primary) hypertension; J44.9 Chronic obstructive pulmonary disease, unspecified; E78.5 Hyperlipidemia, unspecified; F17.200 Nicotine dependence, unspecified, uncomplicated; Z88.2 Allergy status to sulfonamides; Z88.6 Allergy status to analgesic agent; Z90.49 Acquired absence of other specified parts of digestive tract; Z79.51 Long term (current) use of inhaled steroids; Z79.82 Long term (current) use of aspirin; Z79.899 Other long term (current) drug therapy
CPT/HCPCS: 72050; 72072; 87635; 99284

== ENCOUNTER → 2021-10-18 | Outpatient (CLI) | payer MEDICARE, OTHER ==
--- NOTE | 2021-10-20 11:57 | MM ---
Reason for exam: screening (asymptomatic). Last mammogram was performed 1 year and 3 months ago. History: Patient has history of endometrial cancer at age 26. Family history of breast cancer in mother at age 40. Benign excisional biopsy of the right breast, 2005. Physical Findings: A clinical breast exam by your physician is recommended on an annual basis and results should be correlated with mammographic findings. MG Screening Mammo w CAD Bilateral CC and MLO view(s) were taken. XCCL view(s) were taken of the right breast. Prior study comparison: July 09, 2020, bilateral MG screening mammo w CAD. August 10, 2017, bilateral MG screening mammo w CAD. The breast tissue is almost entirely fat. Previous mammotome biopsy in the right breast. There is chronic nodularity in the right breast. No significant changes when compared with prior studies. ASSESSMENT: Benign, BI-RAD 2 RECOMMENDATION: Routine screening mammogram of both breasts in 1 year.
== END | disposition home or self-care (01) ==
LOC: RADMAMWWP 13:15
PROVIDERS: ATTEND Family Medicine
DX: Z12.31 Encounter for screening mammogram for malignant neoplasm of breast (principal); Z80.3 Family history of malignant neoplasm of breast
CPT/HCPCS: 77067

== ENCOUNTER → 2021-12-10 | Outpatient (CLI) | payer MEDICARE, OTHER ==
[2021-12-10 18:26] LABS: HCT 44.5 % (37.2-46.3); HGB 14.7 g/dL (12.0-15.0); MCH 32.7 pg (27.0-32.0); MCV 99.1 fL (80.0-97.0); Mean Platelet Volume 10.2 fL (9.5-12.2); NRBC Per 100 WBC 0 /100 WBCS (0.0-0.0); Platelet Count 320 X 10*3/uL (140-440); RBC 4.49 X 10*6/uL (4.10-5.20); RDW 13.1 % (11.5-14.5); WBC 7.44 X 10*3/uL (4.50-10.00)
[2021-12-10 18:48] LABS: African American GFR (CKD) 89.7 (60.0-200.0); Albumin 4.2 g/dL (3.8-4.9); Albumin/Globulin Ratio 1.83 (1.60-3.17); Anion Gap 8.6 mmol/L (10.00-18.00); BUN/Creat Ratio 21.63 Ratio (12.00-20.00); Blood Urea Nitrogen 17.3 mg/dL (9.0-27.0); Calcium 9.3 mg/dL (8.7-10.3); Carbon Dioxide 25.4 mmol/L (20.0-27.5); Globulin 2.3 g/dL (1.6-3.3); Non-African American GFR(CKD) 77.4 (60.0-200.0); Potassium 4.7 mmol/L (3.5-5.5); Total Bilirubin 0.2 mg/dL (0.30-1.20); Total Protein 6.5 g/dL (6.2-8.2)
[2021-12-10 23:32] LABS: Cryptosporidium Antigen Negative (Negative)
== END | disposition home or self-care (01) ==
LOC: LABWHC1 10:28
PROVIDERS: ATTEND Physician Assistant
DX: R19.7 Diarrhea, unspecified (principal)
CPT/HCPCS: 36415; 80053; 85027; 87045; 87046; 87328; 87329

== ENCOUNTER → 2022-10-15 | Outpatient (CLI) | payer MEDICARE, OTHER ==
[2022-10-15 09:28] LABS: ALT 22 U/L (4-34); AST 21 U/L (14-36); African American GFR (CKD) >90 (>60 ml/min/1.73 sqM); Albumin 4.1 g/dL (3.5-5.0); Albumin/Globulin Ratio 1.4; Alkaline Phosphatase 84 U/L (38-126); Anion Gap 8 mmol/L; Blood Urea Nitrogen 14 mg/dL (7-17); Calcium 9.5 mg/dL (8.4-10.2); Carbon Dioxide 29 mmol/L (22-30); Chloride 104 mmol/L (98-107); Creatine Kinase 47 U/L (30-135); Glucose 81 mg/dL (74-99); Magnesium 2.3 mg/dL (1.6-2.3); Non-African American GFR(CKD) 85 (>60 ml/min/1.73 sqM); Potassium 4.7 mmol/L (3.5-5.1); Sodium 141 mmol/L (137-145); Total Bilirubin 0.5 mg/dL (0.2-1.3); Total Protein 7.1 g/dL (6.3-8.2)
[2022-10-15 10:55] LABS: HCT 44.9 % (34.0-46.0); HGB 15.5 gm/dL (11.4-16.0); MCH 33.3 pg (25.0-35.0); MCHC 34.5 g/dL (31.0-37.0); MCV 96.6 fL (80.0-100.0); Mean Platelet Volume 9.3; Platelet Count 311 k/uL (150-450); RBC 4.65 m/uL (3.80-5.40); RDW 13.7 % (11.5-15.5); WBC 9.8 k/uL (3.8-10.6)
[2022-10-15 15:41] LABS: Chol/HDL Ratio 2.36 Ratio; LDL Cholesterol,Calculated 77.7 mg/dL (0.0-131.0); VLDL Calculation 17.28 mg/dL (5.00-40.00)
== END | disposition home or self-care (01) ==
LOC: LABWHC1 08:11
PROVIDERS: ATTEND Family Medicine
DX: I10 Essential (primary) hypertension (principal); I34.0 Nonrheumatic mitral (valve) insufficiency; J44.9 Chronic obstructive pulmonary disease, unspecified; K21.9 Gastro-esophageal reflux disease without esophagitis
CPT/HCPCS: 36415; 80053; 80061; 82550; 83735; 84443; 84480; 84481; 85027

== ENCOUNTER → 2022-10-25 | Outpatient (CLI) | payer MEDICARE, OTHER ==
--- NOTE | 2022-10-25 22:24 | CTL ---
EXAMINATION TYPE: CT Low Dose Lung DATE OF EXAM ORDERED: 10/25/2022 HISTORY: Tobacco use. Lung cancer screening CT DLP: 80.[address] CTDI: 2.4 mGy Automated exposure control for dose reduction was used. SCREENING VISIT: Second COMPARISON: 06/08/2020 TECHNIQUE: Low dose computed tomography scan was performed through the chest at 1 mm thick sections a nd reconstructed images in the coronal plane at [address] DIAGNOSTIC QUALITY: Satisfactory FINDINGS: LUNG NODULES: None. LUNGS: COPD: Severity: None Fibrosis: Severity: None Lymph nodes: None Other findings: None RIGHT PLEURAL SPACE: Effusion: None Calcification: None Thickening: None Pneumothorax: None LEFT PLEURAL SPACE: Effusion: None Calcification: None Thickening: None Pneumothorax: None HEART: Heart Size: Normal Coronary calcification: None Pericardial effusion: None OTHER FINDINGS: Upper abdomen: Normal Bony thorax: Normal Supraclavicular region: Normal Other: Ascending thoracic aorta at the level the main pulmonary artery measures 3.1 cm. The main pul monary artery at the bifurcation measures 2.5 cm. IMPRESSION: 1. No suspicious changes suggest primary or metastatic neoplasm. FOLLOW UP CT CHEST RECOMMENDATION: Low-dose CT chest one year CT LUNG RAD: Lung-Rad 1 Negative
--- NOTE | 2022-10-26 15:02 | MM ---
Reason for Exam: Screening (asymptomatic). Last screening mammogram was performed 12 month(s) ago. Patient History: Menarche at age 13. First Full-Term at age 20. Hysterectomy at age 26. Endometrial cancer, age 26. 2006, Benign Excisional Biopsy on the right side. Mother had breast cancer, age 40. Risk Values: Karina 5 year model risk: 3.7%. NCI Lifetime model risk: 12.8%. Prior Study Comparison: 08/10/2017 Bilateral Screening Mammogram, [facility]. 07/09/2020 Bilateral Screening Mammogram, [facility]. 10/18/2021 Bilateral Screening Mammogram, [facility]. Tissue Density: There are scattered fibroglandular densities. Findings: Analyzed By CAD. Pattern appears stable. Some nodularities in the upper outer aspect right breast present previously. Core marker is within the lower inner mid right breast. No suspicious groups of microcalcifications, spiculated or lobular masses, architectural distortion or other secondary signs of malignancy are mammographically apparent. Overall Assessment: Benign, BI-RAD 2 Management: Screening Mammogram of both breasts in 1 year. A negative mammogram report should not preclude additional follow up of suspicious palpable abnormalities. Patient should continue monthly self breast exam. A clinical breast exam by your physician is recommended on an annual basis and results should be correlated with mammographic findings. Electronically signed and approved by: Dao Vergara D.O. Radiologis
== END | disposition home or self-care (01) ==
LOC: RADMAMWWP 13:37
PROVIDERS: ATTEND Family Medicine
DX: Z12.31 Encounter for screening mammogram for malignant neoplasm of breast (principal); Z12.2 Encounter for screening for malignant neoplasm of respiratory organs; F17.210 Nicotine dependence, cigarettes, uncomplicated; Z80.3 Family history of malignant neoplasm of breast
CPT/HCPCS: 71271; 77067

== ENCOUNTER 2023-07-03 15:09 | Emergency (ER) | payer MEDICARE, OTHER ==
[2023-07-03 15:27] VITALS: BP 128/80; PULSE 79; RESP 18; TEMP 98.1
--- NOTE | 2023-07-03 16:00 | ED ---
General Adult HPI - General Chief complaint: Extremity Injury, Lower Stated complaint: Fall Time Seen by Provider: 07/03/23 15:26 Source: patient, RN notes reviewed Mode of arrival: ambulatory Limitations: no limitations - History of Present Illness Initial comments: 68-year-old female presents to the emergency department for evaluation of left knee pain following a fall that occurred today at her daughter's house. She states that she went outside on the porch and slipped landing on her right side. She states that when she slipped she feels that she twisted at the knee causing her knee pain. She states that she has been able to ambulate since that injury but now it is more painful. She reports that she took Tylenol her muscle relaxer without relief. She denies head injury, loss consciousness, blood thinners. - Related Data Home Medications Medication Instructions Recorded Confirmed Aspirin 81 mg PO DAILY PRN 02/02/14 08/10/20 Lovastatin [Mevacor] 20 mg PO HS 02/02/14 08/10/20 Nitroglycerin Sl Tabs [Nitrostat] 0.4 mg SUBLINGUAL Q5M PRN 02/02/14 08/06/20 dilTIAZem HCL [Diltiazem ER] 180 mg PO DAILY 12/20/18 08/10/20 Artificial Tears-Hypromellose 1 drops BOTH EYES BID 10/26/19 08/10/20 [Artificial Tear Drops] Cyclobenzaprine [Flexeril] 2.5 mg PO BID PRN 10/26/19 08/10/20 Albuterol Inhaler [Ventolin Hfa 2 puff INHALATION BID 08/06/20 08/10/20 Inhaler] Famotidine [Pepcid] 20 mg PO DAILY 08/06/20 08/10/20 Allergies Allergy/AdvReac Type Severity Reaction Status Date / Time adhesive Allergy Unknown Verified 07/03/23 15:14 ibuprofen [From Motrin] Allergy Unknown Verified 07/03/23 15:14 Sulfa (Sulfonamide Allergy Unknown Verified 07/03/23 15:14 Antibiotics) Review of Systems ROS Statement: Those systems with pertinent positive or pertinent negative responses have been documented in the HPI. ROS Other: All systems not noted in ROS Statement are negative. Past Medical History Past Medical History: Asthma, COPD, Hyperlipidemia, Hypertension Additional Past Medical History / Comment(s): heart murmur, History of Any Multi-Drug Resistant Organisms: None Reported Past Surgical History: Cholecystectomy, Hysterectomy Additional Past Surgical History / Comment(s): throat polyps, right breast biopsy Past Psychological History: Depression Smoking Status: Current every day smoker Past Alcohol Use History: None Reported Past Drug Use History: None Reported General Exam Limitations: no limitations General appearance: alert, in no apparent distress Head exam: Present: atraumatic, normocephalic, normal inspection Eye exam: Present: normal appearance, PERRL, EOMI. Absent: scleral icterus, conjunctival injection, periorbital swelling ENT exam: Present: normal exam, mucous membranes moist Neck exam: Present: normal inspection. Absent: tenderness, meningismus, lymphadenopathy Respiratory exam: Present: normal lung sounds bilaterally. Absent: respiratory distress, wheezes, rales, rhonchi, stridor Cardiovascular Exam: Present: regular rate, normal rhythm, normal heart sounds. Absent: systolic murmur, diastolic murmur, rubs, gallop, clicks Extremities exam: Present: normal inspection, full ROM, tenderness (lateral left leg and posterior knee), normal capillary refill, other (PT and DP pulses 2+, calves nonErythematous, Nonedematous). Absent: pedal edema, joint swelling, calf tenderness Neurological exam: Present: alert, oriented X3 Psychiatric exam: Present: normal affect, normal mood Skin exam: Present: warm, dry, intact, normal color. Absent: rash Course Vital Signs 07/03/23 15:11 Temperature 98.1 F Pulse Rate 79 Respiratory 18 Rate Blood Pressure 128/80 O2 Sat by Pulse 98 Oximetry Medical Decision Making - Medical Decision Making Was pt. sent in by a medical professional or institution ([facility], [employer], urgent care, hospital, or longterm...) When possible be specific @ -No Did you speak to anyone other than the patient for history (EMS, parent, family, police, friend...)? What history was obtained from this source @ -No Did you review nursing and triage notes (agree or disagree)? Why? @ -I reviewed and agree with nursing and triage notes Were old charts reviewed (outside hosp., previous admission, EMS record, old EKG, old radiological studies, urgent care reports/EKG's, longterm records)? Report findings @ -No old charts were reviewed Differential Diagnosis (chest pain, altered mental status, abdominal pain women, abdominal pain men, vaginal bleeding, weakness, fever, dyspnea, syncope, headache, dizziness, GI bleed, back pain, seizure, CVA, palpatations, mental h ealth, musculoskeletal)? @ -Differential Musculoskeletal Muscular strain, contusion, ligament sprain, fracture, arthritis, septic arthritis, bursitis, cellulitis, muscle spasm, nerve compression, DVT, arterial occlusion, herpes zoster, electrolyte abnormality, tumor.... This is not meant to be in all inclusive list EKG interpreted by me (3pts min.). @ -None X-rays interpreted by me (1pt min.). @ -XR left tib fib shows no acute fracture X-ray left knee shows no acute fracture, small joint effusion CT interpreted by me (1pt min.). @ -None done U/S interpreted by me (1pt. min.). @ -None done What testing was considered but not performed or refused? (CT, X-rays, U/S, labs)? Why? @ -None What meds were considered but not given or refused? Why? @ -None Did you discuss the management of the patient with other professionals (professionals i.e. , PA, DUMP TRUCK DRIVER, lab, RT, psych nurse, social services director, heat treater helper, teacher, credit officer, senior case manager)? Give summary @ -No Was smoking cessation discussed for >3mins.? @ -No Was critical care preformed (if so, how long)? @ -No Were there social determinants of health that impacted care today? How? (Homelessness, low income, unemployed, alcoholism, drug addiction, transportat ion, low edu. Level, literacy, decrease access to med. care, halfway, rehab)? @ -No Was there de-escalation of care discussed even if they declined (Discuss DNR or withdrawal of care, Hospice)? DNR status @ -No What co-morbidities impacted this encounter? (DM, HTN, Smoking, COPD, CAD, Cancer, CVA, ARF, Chemo, Hep., AIDS, mental health diagnosis, sleep apnea, morbid obesity)? @ -None Was patient admitted / discharged? Hospital course, mention meds given and route, prescriptions, significant lab abnormalities, going to OR and other pertinent info. @ -Discharged. Patient presented to the emergency department for evaluation of left knee pain following a fall. Head injury, blood thinners, loss of consciousness. X-rays obtained which show no acute fracture. Mild knee effusion on the posterior left knee. Patient is neurovascularly intact. Patient will be discharged home with follow-up to her primary care provider. Patient is agreeable with plan. Patient stable at time of discharge. Case discussed with Dr. Onofre. Undiagnosed new problem with uncertain prognosis? @ -No Drug Therapy requiring intensive monitoring for toxicity (Heparin, Nitro, Insulin, Cardizem)? @ -No Were any procedures done? @ -No Diagnosis/symptom? @ -left knee sprain Acute, or Chronic, or Acute on Chronic? @ -acute Uncomplicated (without systemic symptoms) or Complicated (systemic symptoms)? @ -uncomplicated Side effects of treatment? @ -No Exacerbation, Progression, or Severe Exacerbation? @ -No Poses a threat to life or bodily function? How? (Chest pain, USA, AR, pneumonia, PE, COPD, DKA, ARF, appy, cholecystitis, CVA, Diverticulitis, Homicidal, Suicidal, threat to staff... and all critical care pts) @ -No Disposition Clinical Impression: Left knee sprain Disposition: HOME SELF-CARE Condition: Stable Instructions (If sedation given, give patient instructions): Knee Sprain (ED) Additional Instructions: Please follow up with your primary care provider. Return to the emergency department for new or worsening symptoms. Is patient prescribed a controlled substance at d/c from ED?: No Referrals: Crow Wright MD [Primary Care Provider] - 1-2 days
--- NOTE | 2023-07-03 17:19 | XR ---
EXAMINATION TYPE: XR knee complete 3 views LT, XR tibia fibula 2 views LT DATE OF EXAM: 07/03/2023 COMPARISON: None HISTORY: 68-year-old female fall and twisting injury, pain FINDINGS: Left knee: There is a small knee joint effusion. Extensor mechanism appears intact. No acute fracture, subluxati on, dislocation. Left tibia/fibula: Mild soft tissue swelling. Ankle joint is intact. No acute fracture seen. Subtalar joint aligned. IMPRESSION: 1. Left knee: Small knee joint effusion is nonspecific. No acute osseous abnormality seen. If concern for internal derangement, MRI can be performed. 2. Left tibia/fibula: Mild soft tissue swelling especially distally. No acute osseous abnormality see n.
== END 2023-07-03 17:47 | disposition home or self-care (01) ==
LOC: EC 15:09
DX: S83.92XA Sprain of unspecified site of left knee, initial encounter (principal); J44.89 Other specified chronic obstructive pulmonary disease; E78.5 Hyperlipidemia, unspecified; I10 Essential (primary) hypertension; F17.200 Nicotine dependence, unspecified, uncomplicated; F32.A Depression, unspecified; Z79.82 Long term (current) use of aspirin; Z79.899 Other long term (current) drug therapy; Z91.09 Other allergy status, other than to drugs and biological substances; Z88.2 Allergy status to sulfonamides; Z88.6 Allergy status to analgesic agent; X50.1XXA Overexertion from prolonged static or awkward postures, initial encounter
CPT/HCPCS: 99284

== ENCOUNTER 2023-09-06 06:25 | Emergency (ER) | payer MEDICARE, OTHER ==
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
--- NOTE | 2023-09-06 07:33 | XR ---
EXAMINATION TYPE: XR chest 2V DATE OF EXAM: 09/06/2023 COMPARISON: 11/21/2019 INDICATION: Short of breath TECHNIQUE: Frontal and lateral views of the chest are obtained. FINDINGS: The heart size is normal. The pulmonary vasculature is normal. The lungs are clear. IMPRESSION: 1. No acute pulmonary process.
[2023-09-06 10:29] VITALS: BP 113/75; PULSE 82; RESP 18; TEMP 98.5
== END 2023-09-06 10:10 | disposition home or self-care (01) ==
LOC: EC 06:25
DX: U07.1 COVID-19 (principal); J44.89 Other specified chronic obstructive pulmonary disease; I10 Essential (primary) hypertension; E78.5 Hyperlipidemia, unspecified; Z86.59 Personal history of other mental and behavioral disorders; Z79.82 Long term (current) use of aspirin; Z79.899 Other long term (current) drug therapy; Z88.2 Allergy status to sulfonamides; Z88.6 Allergy status to analgesic agent; Z88.8 Allergy status to other drugs, medicaments and biological substances
CPT/HCPCS: 71046; 87636; 93005; 99284

== ENCOUNTER → 2023-11-17 | Outpatient (CLI) | payer MEDICARE, OTHER ==
--- NOTE | 2023-11-20 10:34 | MM ---
Reason for Exam: Screening (asymptomatic). Last mammogram was performed 1 year(s) and 1 month(s) ago. Patient History: Menarche at age 13. First Full-Term at age 20. Hysterectomy at age 26. Endometrial cancer, age 26. 2006, Benign Excisional Biopsy on the right side. Mother had breast cancer, age 40. Risk Values: Karina 5 year model risk: 3.7%. NCI Lifetime model risk: 12.3%. Prior Study Comparison: 07/09/2020 Bilateral Screening Mammogram, [facility]. 10/18/2021 Bilateral Screening Mammogram, [facility]. 10/25/2022 Bilateral MG screening mammo w CAD, [facility]. Tissue Density: The breasts are almost entirely fatty. Findings: Analyzed By CAD. Right breast: There is no suspicious group of microcalcifications or new suspicious mass. Left breast: There is no suspicious group of microcalcifications or new suspicious mass. Overall Assessment: Negative, BI-RAD 1 Management: Screening Mammogram of both breasts in [address] [facility] will attempt to contact patient to return for supplemental views and ultrasound if indicated. Patient should continue monthly self-breast exams. A clinical breast exam by your physician is recommended on an annual basis. This exam should not preclude additional follow-up of suspicious palpable abnormalities. Note on Karina scores and lifetime risk: 1. A Karina score greater than 3% is considered moderate risk. If this is the case, consider specialist referral to assess eligibility for a risk reducing agent. 2. If overall lifetime risk for the development of breast cancer is 20% or higher, the patient may qualify for future screening with alternating mammogram and breast MRI. Electronically signed and approved by: Alfonso Freeman DO
== END | disposition home or self-care (01) ==
LOC: RADMAMWWP 13:07
PROVIDERS: ATTEND Family Medicine
DX: Z12.31 Encounter for screening mammogram for malignant neoplasm of breast (principal); Z80.3 Family history of malignant neoplasm of breast
CPT/HCPCS: 77063; 77067

== ENCOUNTER → 2024-04-24 | Outpatient (CLI) | payer MEDICARE, OTHER ==
--- NOTE | 2024-04-24 11:15 | CTL ---
EXAMINATION TYPE: CT Low Dose Lung DATE OF EXAM ORDERED: 04/24/2024 HISTORY: Nicotine dependence, current smoker, 40 pack-year history. Lung cancer screening CT DLP: 83.[address] CTDI: 2.3 mGy Automated exposure control for dose reduction was used. SCREENING VISIT: Third screening visit COMPARISON: CT Low Dose Lung 10/25/2022, 06/08/2020 TECHNIQUE: Low dose computed tomography scan was performed through the chest at 1 mm thick sections a nd reconstructed images in multiple planes at 1 mm and [address] DIAGNOSTIC QUALITY: Satisfactory FINDINGS: Nodules: No clinically significant pulmonary nodule. LUNGS: COPD: Severity: Minimal Fibrosis: Severity: None Lymph nodes: None Other findings: None RIGHT PLEURAL SPACE: Effusion: None Calcification: None Thickening: None Pneumothorax: None LEFT PLEURAL SPACE: Effusion: None Calcification: None Thickening: None Pneumothorax: None HEART: Heart Size: Normal Coronary Calcification: None Pericardial Effusion: None OTHER FINDINGS: Upper abdomen: Gallbladder is surgically absent. Diffusely hyperdense liver redemonstrated. This can be seen with iron deposition, copper deposition, glycogen storage disease, or medication/drugs. Bony thorax: Mild multilevel degenerative disc disease. Supraclavicular region: None Other: None IMPRESSION: 1. No clinically significant pulmonary nodule. 2. Diffusely hyperdense liver redemonstrated. This can be seen with iron deposition, copper depositi on, glycogen storage disease, or medication/drugs. CT LUNG RAD AND CT CHEST RECOMMENDATION: Lung-Rad 1 Negative: Continue annual screening with LDCT in 12 months. S Modifier (other clinically significant findings): S [facility], , 04/24/2024 11:12 AM
== END | disposition home or self-care (01) ==
LOC: RADCTMAIN 09:23
PROVIDERS: ATTEND Family Medicine
CPT/HCPCS: 71271

== ENCOUNTER 2024-05-26 16:50 | Observation (INO) | payer MEDICARE, OTHER ==
--- NOTE | 2024-05-26 17:42 | ED ---
General Adult HPI - General Chief complaint: Arrhythmia/Palpitations Stated complaint: heart skipping Time Seen by Provider: 05/26/24 17:15 Source: patient, RN notes reviewed Mode of arrival: ambulatory Limitations: no limitations - History of Present Illness Initial comments: Patient is a 69-year-old female present to the emergency department with conc erns for skipping of her heart. Patient has a history of A-fib with similar symptoms previously. Patient also has some discomfort under her left breast. This is mild at this time. Symptoms have been occurring for 2 to 3 days. Patient has chronic dyspnea, unchanged. No nausea or diaphoresis. - Related Data Home Medications Medication Instructions Recorded Confirmed Aspirin 81 mg PO DAILY 02/02/14 05/26/24 Lovastatin [Mevacor] 20 mg PO HS 02/02/14 05/26/24 Nitroglycerin Sl Tabs [Nitrostat] 0.4 mg SUBLINGUAL Q5M PRN 02/02/14 05/26/24 Cyclobenzaprine [Flexeril] 2.5 mg PO DAILY PRN 10/26/19 05/26/24 Albuterol Inhaler [Ventolin Hfa 1 puff INHALATION RT-Q8H PRN 08/06/20 05/26/24 Inhaler] Carboxymethylcellulose Sodium 1 drop BOTH EYES QID 05/26/24 05/26/24 [Refresh Tears] Diltiazem Cd [Cardizem CD] 180 mg PO DAILY 05/26/24 05/26/24 Ergocalciferol (Vitamin D2) 1,250 mcg PO MO 05/26/24 05/26/24 [Drisdol (50,000 Iu)] Famotidine [Pepcid] 40 mg PO DAILY@1500 05/26/24 05/26/24 Timolol 0.25% Ophth Soln [Timoptic 1 drop LEFT EYE BID 05/26/24 05/26/24 0.25% Ophth Soln] Allergies Allergy/AdvReac Type Severity Reaction Status Date / Time adhesive Allergy Unknown Verified 05/26/24 17:54 ibuprofen [From Motrin] Allergy Unknown Verified 05/26/24 17:54 Sulfa (Sulfonamide Allergy "became Verified 05/26/24 17:54 Antibiotics) violent" Review of Systems ROS Statement: Those systems with pertinent positive or pertinent negative responses have been documented in the HPI. ROS Other: All systems not noted in ROS Statement are negative. Constitutional: Denies: fever Eyes: Denies: eye pain ENT: Denies: ear pain Respiratory: Reports: as per HPI Cardiovascular: Reports: as per HPI, chest pain, palpitations Endocrine: Denies: fatigue Gastrointestinal: Denies: abdominal pain Musculoskeletal: Denies: back pain Past Medical History Past Medical History: Asthma, COPD, Hyperlipidemia, Hypertension Additional Past Medical History / Comment(s): heart murmur, History of Any Multi-Drug Resistant Organisms: None Reported Past Surgical History: Cholecystectomy, Hysterectomy Additional Past Surgical History / Comment(s): throat polyps, right breast biopsy Past Psychological History: Depression Smoking Status: Current every day smoker Past Alcohol Use History: None Reported Past Drug Use History: None Reported General Exam Limitations: no limitations General appearance: alert, in no apparent distress Eye exam: Present: normal appearance Neck exam: Present: normal inspection Respiratory exam: Present: normal lung sounds bilaterally Cardiovascular Exam: Present: regular rate, normal rhythm, normal heart sounds Expanded Peripheral pulses: 2+: Radial (R), Radial (L), Dorsalis Pedis (R), Dorsalis Pedis (L) GI/Abdominal exam: Present: soft. Absent: tenderness Extremities exam: Present: normal inspection. 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 sent in by a medical professional or institution (, PA, HUB INVENTORY SPECIALIST, urgent care, hospital, or care home...) When possible be specific @ -No Did you speak to anyone other than the patient for history (EMS, parent, family, police, friend...)? What history was obtained from this source @ -No Did you review nursing and triage notes (agree or disagree)? Why? @ -I reviewed and agree with nursing and triage notes Were old charts reviewed (outside hosp., previous admission, EMS record, old EKG, old radiological studies, urgent care reports/EKG's, care home records)? Report findings @ -No old charts were reviewed Differential Diagnosis (chest pain, altered mental status, abdominal pain women, abdominal pain men, vaginal bleeding, weakness, fever, dyspnea, syncope, headache, dizziness, GI bleed, back pain, seizure, CVA, palpatations, mental health, musculoskeletal)? @ -Differential Chest Pain: Stable Angina, Unstable Angina, STEMI, NSTEMI Aortic Dissection, Pneumothorax, Musculoskeletal, Esophageal Spasm GERD, Cholecystitis, Pancreatitis, Zoster, this is not meant to be an all-inclusive list. EKG interpreted by me (3pts min.). @ -As above X-rays interpreted by me (1pt min.). @ -X-ray shows no acute process CT interpreted by me (1pt min.). @ -None done U/S interpreted by me (1pt. min.). @ -None done What testing was considered but not performed or refused? (CT, X-rays, U/S, labs)? Why? @ -CT scan of the chest will be added What meds were considered but not given or refused? Why? @ -None Did you discuss the management of the patient with other professionals (charles alfaro i.eOpal Frazier, PA, HUB INVENTORY SPECIALIST, lab, RT, psych nurse, social research assistant, digital content coordinator, teacher, chief sales officer, clinical case manager)? Give summary @ -Case was discussed with Dr. Garsia who will admit covering Dr. Perkins Was smoking cessation discussed for >3mins.? @ -No Was critical care preformed (if so, how long)? @ -No Were there social determinants of health that impacted care today? How? (Homelessness, low income, unemployed, alcoholism, drug addiction, transportation, low edu. Level, literacy, decrease access to med. care, [facility], rehab)? @ -No Was there de-escalation of care discussed even if they declined (Discuss DNR or withdrawal of care, Hospice)? DNR status @ -No What co-morbidities impacted this encounter? (DM, HTN, Smoking, COPD, CAD, Cancer, CVA, ARF, Chemo, Hep., AIDS, mental health diagnosis, sleep apnea, morbid obesity)? @ -History of A-fib Was patient admitted / discharged? Hospital course, mention meds given and route, prescriptions, significant lab abnormalities, going to OR and other per tinent info. @ -Patient presents with palpitations and chest discomfort. Initial evaluation unremarkable, CT scan of the chest will be added. Patient will be admitted with cardiac consult. Admission orders written Undiagnosed new problem with uncertain prognosis? @ -No Drug Therapy requiring intensive monitoring for toxicity (Heparin, Nitro, Insulin, Cardizem)? @ -No Were any procedures done? @ -No Diagnosis/symptom? @ -Chest pain Acute, or Chronic, or Acute on Chronic? @ -Acute Uncomplicated (without systemic symptoms) or Complicated (systemic symptoms)? @ -Default Side effects of treatment? @ -No Exacerbation, Progression, or Severe Exacerbation? @ -No Poses a threat to life or bodily function? How? (Chest pain, USA, [place], pneumonia, PE, COPD, DKA, ARF, appy, cholecystitis, CVA, Diverticulitis, Homicidal, Suicidal, threat to staff... and all critical care pts) @ -Threat to cardiac function - Lab Data Result diagrams: 05/26/24 17:35 05/26/24 17:35 Lab Results 05/26/24 05/26/24 05/26/24 Range/Units 17:35 17:35 17:35 WBC 9.2 (3.8-10.6) k/uL RBC 4.42 (3.80-5.40) m/uL Hgb 14.8 (11.4-16.0) gm/dL Hct 44.3 (34.0-46.0) % MCV 100.1 H (80.0-100.0) fL MCH 33.3 (25.0-35.0) pg MCHC 33.3 (31.0-37.0) g/dL RDW 13.6 (11.5-15.5) % Plt Count 278 (150-450) k/uL MPV 7.2 Neutrophils % 61 % Lymphocytes % 29 % Monocytes % 7 % Eosinophils % 1 % Basophils % 0 % Neutrophils # 5.6 (1.3-7.7) k/uL Lymphocytes # 2.6 (1.0-4.8) k/uL Monocytes # 0.7 (0-1.0) k/uL Eosinophils # 0.1 (0-0.7) k/uL Basophils # 0.0 (0-0.2) k/uL PT 9.5 L (10.0-12.5) sec INR 0.8 (<1.2) APTT 25.4 (22.0-30.0) sec D-Dimer 0.75 H (<0.60) mg/L FEU Sodium 141 (137-145) mmol/L Potassium 3.8 (3.5-5.1) mmol/L Chloride 110 H (98-107) mmol/L Carbon Dioxide 29 (22-30) mmol/L Anion Gap 2 mmol/L BUN 24 H (7-17) mg/dL Creatinine 1.12 H (0.52-1.04) mg/dL Est GFR (CKD-EPI)AfAm 58 (>60 ml/min/1.73 sqM) Est GFR (CKD-EPI)NonAf 51 (>60 ml/min/1.73 sqM) Glucose 87 (74-99) mg/dL Calcium 8.7 (8.4-10.2) mg/dL Magnesium 2.1 (1.6-2.3) mg/dL Total Bilirubin 0.3 (0.2-1.3) mg/dL AST 18 (14-36) U/L ALT 17 (4-34) U/L Alkaline Phosphatase 80 (38-126) U/L Troponin I (0.000-0.034) ng/mL Total Protein 6.5 (6.3-8.2) g/dL Albumin 4.0 (3.5-5.0) g/dL TSH 0.630 (0.465-4.680) mIU/L Free T4 1.07 (0.78-2.19) ng/dL 05/26/24 Range/Units 17:35 WBC (3.8-10.6) k/uL RBC (3.80-5.40) m/uL Hgb (11.4-16.0) gm/dL Hct (34.0-46.0) % MCV (80.0-100.0) fL MCH (25.0-35.0) pg MCHC (31.0-37.0) g/dL RDW (11.5-15.5) % Plt Count (150-450) k/uL MPV Neutrophils % % Lymphocytes % % Monocytes % % Eosinophils % % Basophils % % Neutrophils # (1.3-7.7) k/uL Lymphocytes # (1.0-4.8) k/uL Monocytes # (0-1.0) k/uL Eosinophils # (0-0.7) k/uL Basophils # (0-0.2) k/uL PT (10.0-12.5) sec INR (<1.2) APTT (22.0-30.0) sec D-Dimer (<0.60) mg/L FEU Sodium (137-145) mmol/L Potassium (3.5-5.1) mmol/L Chloride (98-107) mmol/L Carbon Dioxide (22-30) mmol/L Anion Gap mmol/L BUN (7-17) mg/dL Creatinine (0.52-1.04) mg/dL Est GFR (CKD-EPI)AfAm (>60 ml/min/1.73 sqM) Est GFR (CKD-EPI)NonAf (>60 ml/min/1.73 sqM) Glucose (74-99) mg/dL Calcium (8.4-10.2) mg/dL Magnesium (1.6-2.3) mg/dL Total Bilirubin (0.2-1.3) mg/dL AST (14-36) U/L ALT (4-34) U/L Alkaline Phosphatase (38-126) U/L Troponin I <0.012 (0.000-0.034) ng/mL Total Protein (6.3-8.2) g/dL Albumin (3.5-5.0) g/dL TSH (0.465-4.680) mIU/L Free T4 (0.78-2.19) ng/dL Disposition Clinical Impression: Chest pain Disposition: ADMITTED IP TO THIS HOSP Is patient prescribed a controlled substance at d/c from ED?: No Referrals: Crow Wright MD [Primary Care Provider] - 1-2 days Time of Disposition: 19:12
[2024-05-26 17:54] LABS: Basophils % (A) 0 %; Eosinophils # (A) 0.1 k/uL (0-0.7); Eosinophils % (A) 1 %; HCT 44.3 % (34.0-46.0); HGB 14.8 gm/dL (11.4-16.0); Lymphocytes # (A) 2.6 k/uL (1.0-4.8); Lymphocytes % (A) 29 %; MCH 33.3 pg (25.0-35.0); MCHC 33.3 g/dL (31.0-37.0); MCV 100.1 fL (80.0-100.0); Mean Platelet Volume 7.2; Monocytes # (A) 0.7 k/uL (0-1.0); Monocytes % (A) 7 %; Neutrophils # (A) 5.6 k/uL (1.3-7.7); Neutrophils % (A) 61 %; Platelet Count 278 k/uL (150-450); RBC 4.42 m/uL (3.80-5.40); RDW 13.6 % (11.5-15.5); WBC 9.2 k/uL (3.8-10.6)
[2024-05-26 18:07] LABS: ALT 17 U/L (4-34); AST 18 U/L (14-36); African American GFR (CKD) 58 (>60 ml/min/1.73 sqM); Alkaline Phosphatase 80 U/L (38-126); Anion Gap 2 mmol/L; Blood Urea Nitrogen 24 mg/dL (7-17); Calcium 8.7 mg/dL (8.4-10.2); Carbon Dioxide 29 mmol/L (22-30); Chloride 110 mmol/L (98-107); Glucose 87 mg/dL (74-99); Magnesium 2.1 mg/dL (1.6-2.3); Non-African American GFR(CKD) 51 (>60 ml/min/1.73 sqM); Potassium 3.8 mmol/L (3.5-5.1); Sodium 141 mmol/L (137-145); Total Bilirubin 0.3 mg/dL (0.2-1.3); Total Protein 6.5 g/dL (6.3-8.2)
[2024-05-26 18:15] LABS: INR 0.8 (<1.2); Partial Thromboplastin Time 25.4 sec (22.0-30.0); Prothrombin Time 9.5 sec (10.0-12.5)
[2024-05-26] MEDS: ASPIRIN 81 MG PO STA (18:16)
[2024-05-26 18:24] LABS: T4, Free (Free Thyroxine) 1.07 ng/dL (0.78-2.19)
--- NOTE | 2024-05-26 18:39 | XR ---
EXAMINATION TYPE: XR chest 2V DATE OF EXAM: 05/26/2024 6:33 PM COMPARISON: 09/06/2023 CLINICAL INDICATION: Female, 69 years old with history of dysrhythmia, TECHNIQUE: XR chest 2V view(s) obtained. FINDINGS: The heart size is normal. The pulmonary vasculature is normal. The lungs are clear. IMPRESSION: 1. No acute pulmonary process. [facility], , 05/26/2024 6:36 PM
[2024-05-26] MEDS ORDERED: NITROGLYCERIN SL TABS 0.4 MG TAB SUBLINGUAL PRN ×2 (19:07→19:12)
[2024-05-26] MEDS ORDERED: ALBUTEROL NEBULIZED 2.5 MG/3 ML INHALATION PRN (19:07)
[2024-05-26] MEDS ORDERED: CYCLOBENZAPRINE 5 MG TAB PO PRN (19:07)
[2024-05-26] MEDS: ATORVASTATIN 10 MG TAB PO SCH (20:18)
--- NOTE | 2024-05-26 21:05 | CT ---
EXAMINATION TYPE: CT angio chest DATE OF EXAM: 05/26/2024 8:45 PM COMPARISON: None. CLINICAL INDICATION: Female, 69 years old with history of cp, positive dimer TECHNIQUE: CT of the chest is performed on a spiral scan at 2 mm thick sections. Study is performed with intravenous contrast timed for evaluation for pulmonary embolism. This will limit additional po rtions of the evaluation. 3-D MIP images reconstructed by the technologist are reviewed on the compu ter in the coronal and sagittal planes. Contrast used:80 mL of Isovue 370 with IV Contrast, (none if empty) Oral contrast used: (none if empty) CT DLP: 296.3 mGycm, Automated exposure control for dose reduction was used. FINDINGS: No persistent filling defects are evident to suggest an acute pulmonary embolism. No mediastinal or hilar adenopathy enlarged by CT criteria is evident. The ascending aorta diameter at the level of the main pulmonary artery is 2.8 cm. The main pulmonary artery diameter at the bifurcation is 2.2 cm. Lung windows are clear. Limited CT sections were through the upper abdomen. Upper abdomen appears unremarkable. IMPRESSION: 1. No acute pulmonary embolism. 2. No acute pulmonary process. [facility], , 05/26/2024 9:02 PM
[2024-05-26] MEDS: ARTIFICIAL TEARS-HYPROMELLOSE DROPS 15 ML BTL BOTH EYES SCH (21:26)
[2024-05-26] MEDS: TIMOLOL 0.25% OPHTH DROPS 5 ML BTL LEFT EYE SCH (21:26)
[2024-05-27 07:20] VITALS: RESP 16
[2024-05-27 08:41] LABS: Chol/HDL Ratio 2.45 Ratio; LDL Cholesterol,Calculated 64.1 mg/dL (0.0-131.0)
[2024-05-27] MEDS: DILTIAZEM CD 180 MG CAP.ER.24H PO SCH (08:49)
[2024-05-27] MEDS: ERGOCALCIFEROL 1,250 MCG (50,000 IU) CAPSULE PO SCH (08:51)
[2024-05-27] MEDS: ASPIRIN 325 MG TAB PO SCH (08:51)
[2024-05-27] MEDS ORDERED: ASPIRIN 81 MG PO SCH (09:00)
--- NOTE | 2024-05-27 11:00 | P.HPIM ---
History of Present Illness H&P Date: 05/28/24 Chief Complaint: Chest palpitations History and Physical and Discharge Summary: This is a 69-year-old female with past medical history significant for hypertension, hyperlipidemia, asthma, COPD, nicotine dependence , mitral regurgitation, depression and multiple other medical issues presented to the ER with complaints of " recurrent palpitations, skipping beats" yesterday both at rest and with exertion. Denies chest pain, chest pressure, diaphoresis. Denies lightheadedness, dizziness or focal deficits. Denies cough, congestion. reports previous stress test, followed by normal heart catheterization 2020. States she saw her finisher accordion Dr. Cam within the last 2 to 3 months for routine checkup. Reports mother had a history of UT and stents. Positive D-dimer, 0.75, CTA reported negative for PE. Troponins negative x 3, EKG reporting sinus rhythm, low QRS voltage in precordial leads- Cardiology evaluation in progress. Afebrile, normal WBC, vital signs stable, maintaining O2 sats in the high 90s on room air. Hematology unremarkable with the exception of MCV 100.1. Sodium 141, testing 3.8, bicarb 29, BUN 24, creatinine 1.12 ( baseline 0.7 to 0.9), magnesium 2.1. Chest x-ray reported nonacute. TSH 0.630, free T4 1.07. Tri glycerides 55.5 cholesterol 127 LDL 64 HDL 51.8. Review of Systems ROS Statement: Those systems with pertinent positive or pertinent negative responses have been documented in the HPI. ROS Other: All systems not noted in ROS Statement are negative. Past Medical History Past Medical History: Asthma, COPD, Hyperlipidemia, Hypertension Additional Past Medical History / Comment(s): heart murmur, History of Any Multi-Drug Resistant Organisms: None Reported Past Surgical History: Cholecystectomy, Hysterectomy Additional Past Surgical History / Comment(s): throat polyps, right breast biopsy Past Psychological History: Depression Smoking Status: Current every day smoker Past Alcohol Use History: None Reported Past Drug Use History: None Reported Medications and Allergies Home Medications Medication Instructions Recorded Confirmed Type Aspirin 81 mg PO DAILY 02/02/14 05/26/24 History Lovastatin [Mevacor] 20 mg PO HS 02/02/14 05/26/24 History Nitroglycerin Sl Tabs [Nitrostat] 0.4 mg SUBLINGUAL Q5M PRN 02/02/14 05/26/24 History Cyclobenzaprine [Flexeril] 2.5 mg PO DAILY PRN 10/26/19 05/26/24 History Albuterol Inhaler [Ventolin Hfa 1 puff INHALATION RT-Q8H PRN 08/06/20 05/26/24 History Inhaler] Carboxymethylcellulose Sodium 1 drop BOTH EYES QID 05/26/24 05/26/24 History [Refresh Tears] Diltiazem Cd [Cardizem CD] 180 mg PO DAILY 05/26/24 05/26/24 History Ergocalciferol (Vitamin D2) 1,250 mcg PO MO 05/26/24 05/26/24 History [Drisdol (50,000 Iu)] Famotidine [Pepcid] 40 mg PO DAILY@1500 05/26/24 05/26/24 History Timolol 0.25% Ophth Soln [Timoptic 1 drop LEFT EYE BID 05/26/24 05/26/24 History 0.25% Ophth Soln] Allergies Allergy/AdvReac Type Severity Reaction Status Date / Time adhesive Allergy Unknown Verified 05/26/24 17:54 ibuprofen [From Motrin] Allergy Unknown Verified 05/26/24 17:54 Sulfa (Sulfonamide Allergy "became Verified 05/26/24 17:54 Antibiotics) violent" Physical Exam Vitals: Vital Signs Temp Pulse Pulse Resp BP BP Pulse Ox 05/27/24 08:28 98 05/27/24 07:00 97.3 F L 73 16 110/61 05/27/24 01:37 97.4 F L 69 18 116/81 98 05/26/24 23:00 75 24 100/61 98 05/26/24 20:00 98.3 F 76 18 108/64 97 05/26/24 18:19 80 18 109/80 98 05/26/24 17:27 73 05/26/24 17:10 97.8 F 78 20 129/85 99 Intake and Output 05/26/24 05/27/24 05/27/24 22:59 06:59 14:59 Other: Voiding Method Toilet # Voids 1 Weight 83.007 kg 83.007 kg PHYSICAL EXAM: VITAL SIGNS: [Reviewed] GENERAL: Well-nourished, alert and oriented x 3, sitting up in bed, no acute distress HEENT: Normocephalic, atraumatic conjunctivae normal. eyes normal. NECK: Supple, no JVD. No thyroid enlargement. No LNs CARDIOVASCULAR: S1, S2 regular.systolic murmur. RESPIRATION: Unlabored, equal air entry, mild bilateral expiratory wheezing. ABDOMEN: Soft, nontender . No guarding. no masses palpable. No ascites, No hepatosplenomegaly.Bowel sounds heard. LEGS: No edema. no swelling NERVOUS SYSTEM: Cranial N 2-12 grossly normal. No focal deficits. Strength and sensation grossly intact. Skin: Warm and dry, no rash Results CBC & Chem 7: 05/26/24 17:35 05/26/24 17:35 Labs: Abnormal Lab Results - Last 24 Hours (Table) 05/26/24 05/26/24 05/26/24 Range/Units 17:35 17:35 17:35 MCV 100.1 H (80.0-100.0) fL PT 9.5 L (10.0-12.5) sec D-Dimer 0.75 H (<0.60) mg/L FEU Chloride 110 H (98-107) mmol/L BUN 24 H (7-17) mg/dL Creatinine 1.12 H (0.52-1.04) mg/dL Thrombosis Risk Factor Assmnt - Choose All That Apply Any of the Below Risk Factors Present?: Yes Each Factor Represents 1 point: Obesity (BMI >25) Other Risk Factors: Yes Each Risk Factor Represents 2 Points: Age 61-74 years Other congenital or acquired thrombophilia - If yes, enter type in comment: No Thrombosis Risk Factor Assessment Total Risk Factor Score: 3 Thrombosis Risk Factor Assessment Level: Moderate Risk Assessment and Plan Assessment: Chest palpitations, troponins negative x 3, Mitral regurgitation Hypertension Hyperlipidemia COPD, stable Chronic asthma, stable Nicotine dependence, smoking cessation re-enforced Obesity, BMI 30 Plan: Continue on current medication regimen ,monitoring and symptomatic treatment. Cardiology consult in place, recommendations pending. Patient will be discharged home today in a stable condition with guarded prognosis pending final cardiology recommendations, DC recommendations and clearance. Smoking cessation reinforced. Discharge Medication List Aspirin 81 mg PO DAILY 02/02/14 [History] Lovastatin [Mevacor] 20 mg PO HS 02/02/14 [History] Nitroglycerin Sl Tabs [Nitrostat] 0.4 mg SUBLINGUAL Q5M PRN 02/02/14 [History] Cyclobenzaprine [Flexeril] 2.5 mg PO DAILY PRN 10/26/19 [History] Albuterol Inhaler [Ventolin Hfa Inhaler] 1 puff INHALATION RT-Q8H PRN 08/06/20 [History] Carboxymethylcellulose Sodium [Refresh Tears] 1 drop BOTH EYES QID 05/26/24 [History] Diltiazem Cd [Cardizem CD] 180 mg PO DAILY 05/26/24 [History] Ergocalciferol (Vitamin D2) [Drisdol (50,000 Iu)] 1,250 mcg PO MO 05/26/24 [History] Famotidine [Pepcid] 40 mg PO DAILY@1500 05/26/24 [History] Timolol 0.25% Ophth Soln [Timoptic 0.25% Ophth Soln] 1 drop LEFT EYE BID 05/26/24 [History] Budesonide/Formoterol Fumarate [Symbicort 80-4.5 Mcg Inhaler] 2 puff INHALATION BID #1 each 05/27/24 [Rx] The impression and plan of care has been dictated as directed. : I performed a history and examination of this patient, discussed the same with the dictator. I agree with the dictator's note ,documented as a scribe. Any additional findings or plans will be noted.
[2024-05-27] MEDS ORDERED: CAFFEINE CITRATE 60 MG/3 ML VIAL IV PRN (11:28)
[2024-05-27] MEDS ORDERED: REGADENOSON 0.4 MG/5 ML SYRINGE IV PRN (11:28)
[2024-05-27] MEDS ORDERED: AMINOPHYLLINE 500 MG/20 ML VIAL IV PRN (11:28)
[2024-05-27 14:50] VITALS: BP 119/76; PULSE 65; TEMP 97.7
--- NOTE | 2024-05-27 14:54 | CA ---
Lexiscan Nuclear Stress Test Report Name: Romy Pires Exam Date: 05/27/2024 13:38 Exam Location: [facility] Stress Ht (in): 66 Wt (lb): 183 BSA: 1.93 Ordering Phys: Viktor Chauhan MD Referring Phys: ANIRUDH TALAVERA Technologist: JONATHON Age: 69 Gender: F : 1955 Procedure CPT: Indications: Reflex order-Stress test ICD-10 Codes: Patient History: Palpitations and KALEB Medications: Meds past 24 hrs: Pretest Chest Pain: STRESS TEST Lexiscan Protocol Exercise Duration (min:sec): 02:[address] Depressions (mm): Angina Score: Spear Score: Resting HR (bpm): 65 Peak HR (bpm): 101 Resting BP (mmHg): 127 / 70 Peak BP (mmHg): 133 / 75 MPHR: 152 Target HR: 129 % MPHR: 66 METS: 1.0 Total Dose: Peak Dose: Atropine: Double Product: 54114 BP Response: Stress Termination: Infusion complete Stress Symptoms: KALEB and headache Stress Summary: ECG ANALYSIS Resting ECG: Stress ECG: CONCLUSIONS RESTING EKG: Normal sinus rhythm, Heart rate 66 BPM Patient recieved IV infusion of Lexiscan 0.4mg and at peak infusion. Patient experiencing palpitations or difficulty in breathing with Lexiscan infusion. There were no significant hemodynamic compromise with Lexiscan infusion or reported chest pain chest pressure or shortness of breath. STRESS EKG showed: No significant ST-T wave changes are nondiagnostic for ischemia by ST segment analysis ARRYTHMIAS: [No ectopic rhythms or sustained arrythmias] CONCLUSION: 1. Normal hemodynamic and clinical response to Lexiscan infusion. 2. Non-ischemic EKG response to lexiscan infusion Please refer to the nuclear imaging portion of this stress test for complete interpretation of the study. Dr Viktor Chauhan (Electronically Signed) Final Date: 27 May 2024 14:53
--- NOTE | 2024-05-27 15:06 | NM ---
EXAMINATION TYPE: NM stress lexiscan cardiolite DATE OF EXAM: 05/27/2024 COMPARISON: NONE CLINICAL INDICATION: Female, 69 years old with history of substernal chest pressure; TECHNIQUE: After the intravenous administration of 9.8 mCi Tc 99m Sestamibi - Cardiolite resting SPE CT images acquired 45 minutes post injection. The patient received 0.4mg Lexiscan, 24.8 mCi Tc 99m Sestamibi - Stress images obtained [address] injection FINDINGS: Review of stress and rest SPECT images demonstrates no distinct perfusion abnormality. Gated analysi s shows normal wall motion with an estimated left ventricular ejection fraction of 74% %. IMPRESSION: No scintigraphic evidence for reversible ischemia. [facility], , 05/27/2024 3:04 PM
[2024-05-27] MEDS: FAMOTIDINE 20 MG TAB PO SCH (15:29)
--- NOTE | 2024-05-27 16:29 | P.CRDCN ---
History of Present Illness Consult date: 05/27/24 History of present illness: HISTORY OF PRESENTING ILLNESS Patient is a 64-year-old female with past medical history of hypertension dyslipidemia asthma COPD and tobacco smoker. She also has history of palpitation and skipped heartbeat sensation. She has seen Dr. Cam on outpatient basis in the past. Patient reports that for her skipped heartbeat sensation she has had multiple heart monitors which were nonrevealing as whenever she wore the monitor she never had her palpitation symptoms. On admission she had mildly elevated D-dimer follow-up CTA was negative for any PE. Troponins were negative x 3, ECG reported sinus rhythm with no significant ST or T wave changes concerning for ischemia. REVIEW OF SYSTEMS 14 point review of system is negative except what is mentioned above in HPI. PHYSICAL EXAMINATION Vital signs reviewed. Head: Normocephalic. Eyes: Sclerae nonicteric. Neck: Brisk carotid upstroke, no jugular venous distention. Lungs: Clear to auscultation. Heart: Regular rate and rhythm, S1-S2, no S3, no murmur or rub. Abdomen: Soft nontender, positive bowel sounds. Extremities: No edema, intact distal pulses. Neuro: Alert, oritented, no focal deficits. Detailed neuro exam was not performed. ASSESSMENT Atypical chest pain. Rule out of ACS with negative ECG and trops Palpitations Moderate mitral regurgitation Essential hypertension Dyslipidemia COPD, stable Tobacco smoker Obesity PLAN She recently had an outpatient echocardiogram which patient reports that was within normal limits. She has had heart monitors in the past which were nonrevealing. I would recommend that she follows up outpatient with Dr. Cam to get evaluated for a repeat heart monitor. Her telemetry during her hospital stay did not show any concerning findings. We performed a Lexiscan nuclear stress test which did not show any evidence of reversible or fixed perfusion defect. I will continue her aspirin 81, Cardizem 180 mg daily, and statins. Cleared fro m cardiac standpoint recommend outpatient follow-up. Viktor Chauhan MD, FACC, RPVI Thank you for allowing [facility] to participate in this patient's care. Feel free to reach out in case of any followup questions. Past Medical History Past Medical History: Asthma, COPD, Hyperlipidemia, Hypertension Additional Past Medical History / Comment(s): heart murmur, History of Any Multi-Drug Resistant Organisms: None Reported Past Surgical History: Cholecystectomy, Hysterectomy Additional Past Surgical History / Comment(s): throat polyps, right breast biopsy Past Psychological History: Depression Smoking Status: Current every day smoker Past Alcohol Use History: None Reported Past Drug Use History: None Reported Medications and Allergies Home Medications Medication Instructions Recorded Confirmed Type Aspirin 81 mg PO DAILY 02/02/14 05/26/24 History Lovastatin [Mevacor] 20 mg PO HS 02/02/14 05/26/24 History Nitroglycerin Sl Tabs [Nitrostat] 0.4 mg SUBLINGUAL Q5M PRN 02/02/14 05/26/24 History Cyclobenzaprine [Flexeril] 2.5 mg PO DAILY PRN 10/26/19 05/26/24 History Albuterol Inhaler [Ventolin Hfa 1 puff INHALATION RT-Q8H PRN 08/06/20 05/26/24 History Inhaler] Carboxymethylcellulose Sodium 1 drop BOTH EYES QID 05/26/24 05/26/24 History [Refresh Tears] Diltiazem Cd [Cardizem CD] 180 mg PO DAILY 05/26/24 05/26/24 History Ergocalciferol (Vitamin D2) 1,250 mcg PO MO 05/26/24 05/26/24 History [Drisdol (50,000 Iu)] Famotidine [Pepcid] 40 mg PO DAILY@1500 05/26/24 05/26/24 History Timolol 0.25% Ophth Soln [Timoptic 1 drop LEFT EYE BID 05/26/24 05/26/24 History 0.25% Ophth Soln] Budesonide/Formoterol Fumarate 2 puff INHALATION BID #1 each 05/27/24 Rx [Symbicort 80-4.5 Mcg Inhaler] Allergies Allergy/AdvReac Type Severity Reaction Status Date / Time adhesive Allergy Unknown Verified 05/26/24 17:54 ibuprofen [From Motrin] Allergy Unknown Verified 05/26/24 17:54 Sulfa (Sulfonamide Allergy "became Verified 05/26/24 17:54 Antibiotics) violent" Physical Exam Vitals: Vital Signs Temp Pulse Pulse Resp BP BP Pulse Ox 05/27/24 14:48 97.7 F 65 16 119/76 99 05/27/24 08:28 98 05/27/24 07:00 97.3 F L 73 16 110/61 05/27/24 01:37 97.4 F L 69 18 116/81 98 05/26/24 23:00 75 24 100/61 98 05/26/24 20:00 98.3 F 76 18 108/64 97 05/26/24 18:19 80 18 109/80 98 05/26/24 17:27 73 05/26/24 17:10 97.8 F 78 20 129/85 99 Intake and Output 05/27/24 05/27/24 05/27/24 06:59 14:59 22:59 Other: Voiding Method Toilet # Voids 1 3 Weight 83.007 kg Results 05/26/24 17:35 05/26/24 17:35 Cardiac Enzymes 05/26/24 05/26/24 05/26/24 Range/Units 17:35 17:35 20:29 AST 18 (14-36) U/L Troponin I <0.012 <0.012 (0.000-0.034) ng/mL 05/26/24 Range/Units 23:33 AST (14-36) U/L Troponin I <0.012 (0.000-0.034) ng/mL Coagulation 05/26/24 Range/Units 17:35 PT 9.5 L (10.0-12.5) sec APTT 25.4 (22.0-30.0) sec Lipids 05/27/24 Range/Units 04:18 Triglycerides 55.50 (0.00-149.00) mg/dL Cholesterol 127.00 (0.00-200.00) mg/dL HDL Cholesterol 51.80 (40.00-60.00) mg/dL Cholesterol/HDL Ratio 2.45 Ratio CBC 05/26/24 Range/Units 17:35 WBC 9.2 (3.8-10.6) k/uL RBC 4.42 (3.80-5.40) m/uL Hgb 14.8 (11.4-16.0) gm/dL Hct 44.3 (34.0-46.0) % Plt Count 278 (150-450) k/uL Comprehensive Metabolic Panel 05/26/24 Range/Units 17:35 Sodium 141 (137-145) mmol/L Potassium 3.8 (3.5-5.1) mmol/L Chloride 110 H (98-107) mmol/L Carbon Dioxide 29 (22-30) mmol/L BUN 24 H (7-17) mg/dL Creatinine 1.12 H (0.52-1.04) mg/dL Glucose 87 (74-99) mg/dL Calcium 8.7 (8.4-10.2) mg/dL AST 18 (14-36) U/L ALT 17 (4-34) U/L Alkaline Phosphatase 80 (38-126) U/L Total Protein 6.5 (6.3-8.2) g/dL Albumin 4.0 (3.5-5.0) g/dL Current Medications Generic Name Dose Route Start Last Admin Trade Name Freq PRN Reason Stop Dose Admin Albuterol Sulfate 2.5 mg 05/26/24 19:07 Albuterol Nebulized 2.5 Mg/3 Ml INHALATION RT-Q8H PRN Shortness Of Breath Artificial Tears 1 drops 05/26/24 22:00 05/27/24 15:30 Artificial Tears-Hypromellose Drops 15 Ml Btl BOTH EYES 1 drops QID BARBIE Administration Aspirin 325 mg 05/27/24 09:00 05/27/24 08:51 Aspirin 325 Mg Tab PO 325 mg DAILY BARBIE Administration Atorvastatin Calcium 10 mg 05/26/24 21:00 05/27/24 15:29 Atorvastatin 10 Mg Tab PO 10 mg HS BARBIE Administration Cyclobenzaprine HCl 2.5 mg 05/26/24 19:07 Cyclobenzaprine 5 Mg Tab PO DAILY PRN MUSCLE SPASMS Diltiazem HCl 180 mg 05/27/24 09:00 05/27/24 08:49 Diltiazem Cd 180 Mg Cap.Er.24h PO 180 mg DAILY BARBIE Administration Ergocalciferol 1,250 mcg 05/27/24 09:00 05/27/24 08:51 Ergocalciferol 1,250 Mcg (50,000 Iu) Capsule PO 1,250 mcg MO BARBIE Administration Famotidine 40 mg 05/27/24 15:00 05/27/24 15:29 Famotidine 20 Mg Tab PO 40 mg DAILY@1500 BARBIE Administration Nitroglycerin 0.4 mg 05/26/24 19:12 Nitroglycerin Sl Tabs 0.4 Mg Tab SUBLINGUAL Q5M PRN Chest Pain Timolol Maleate 1 drops 05/26/24 21:00 05/27/24 08:52 Timolol 0.25% Ophth Drops 5 Ml Btl LEFT EYE 1 drops BID BARBIE Administration Intake and Output 05/27/24 05/27/24 05/27/24 06:59 14:59 22:59 Other: Voiding Method Toilet # Voids 1 3 Weight 83.007 kg 05/26/24 17:35 05/26/24 17:35
== END 2024-05-27 16:31 | disposition home or self-care (01) ==
LOC: EC 16:50 → 6NMEDSUR 19:13
PROVIDERS: ADMIT Family Medicine; ATTEND Family Medicine
DX: R07.89 Other chest pain (principal); I34.0 Nonrheumatic mitral (valve) insufficiency; I48.91 Unspecified atrial fibrillation; J44.9 Chronic obstructive pulmonary disease, unspecified; R79.89 Other specified abnormal findings of blood chemistry; E78.5 Hyperlipidemia, unspecified; I10 Essential (primary) hypertension; F32.A Depression, unspecified; F17.200 Nicotine dependence, unspecified, uncomplicated; E66.9 Obesity, unspecified; Z68.30 Body mass index [BMI] 30.0-30.9, adult; Z79.82 Long term (current) use of aspirin; Z79.51 Long term (current) use of inhaled steroids; Z79.899 Other long term (current) drug therapy; Z88.2 Allergy status to sulfonamides; Z88.6 Allergy status to analgesic agent; Z91.048 Other nonmedicinal substance allergy status; Z71.6 Tobacco abuse counseling
CPT/HCPCS: 99285; 36415; 94760; 93005; 93017; 93306; 85379; 84439; 84481; 80061; 80053; 83735; 84443; 84484; 85025; 85610; 85730; 71046; 71275; 78452; G0378 ×4; A9500; J2785; Q9967